=== PATIENT | male | born 2000 | race Caucasian/White ===

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

== ENCOUNTER 2021-06-08 14:53 | Emergency (ER) | payer BC, MEDICAID, SELFPAY ==
--- NOTE | ~2021-06-08 | XR_ITS ---
EXAMINATION: XR chest 2V EXAM DATE: 06/08/2021 15:26 INDICATION: Cough, congestion few days. hx bronchitis. TECHNIQUE: Frontal and lateral projections of the chest obtained and reviewed. There is no prior blanche dy for comparison. FINDINGS: The lungs are clear. There are no pleural effusions. The cardiomediastinal silhouette is within normal limits. There is no pneumothorax suspected. The bones and soft tissues are unremarkab le. IMPRESSION: No acute cardiopulmonary findings. Reviewed, dictated and finalized at location B.
[2021-06-08 15:05] VITALS: BP 130/71; PULSE 91; RESP 18; TEMP 37; O2SAT 98
--- NOTE | 2021-06-08 15:26 | ED.URI ---
HPI - URI/Sore Throat General Chief Complaint: Upper Respiratory Infection Stated Complaint: Congetion,Cough Time Seen by Provider: 06/08/21 15:27 Source: patient Mode of arrival: ambulatory Limitations: no limitations History of Present Illness HPI Narrative: Chepe Chun is a 20 yo male with no PMH who comes to [facility] with complaints of cough and chest discomfort from the coughing and sinus pain this been going on for last 2 to 3 days. He feels fatigue. He states he gets this every year with the change of seasons although is not diagnosed with asthma or seasonal allergies and does not take any medication Related Data Allergies Allergy/AdvReac Type Severity Reaction Status Date / Time No Known Allergies Allergy Unverified 12/04/18 06:09 Review of Systems Review of Systems: CONSTITUTIONAL: Denies fever, chills, sweats. EYES: Denies visual changes, redness, discharge. ENT: Denies rhinorrhea, has congestion, sore throat, otalgia. CARDIOVASCULAR: Has chest wall pain, palpitations, edema. RESPIRATORY: Denies dyspnea, wheezing, has cough GASTROINTESTINAL: Denies abdominal pain, nausea, vomiting, diarrhea. GENITOURINARY: Denies dysuria, hematuria, abnormal discharge SKIN: Denies rash or itching. NEUROLOGIC: Denies numbness, or focal weakness. PSYCHIATRIC: Denies anxiety or depression. PMFSH Past Medical History Medical History Healthy adult male Surgical History Surgical History History of orthopedic surgery Right ankle Family History Family History Other Unknown family medical history Social History Social History (Updated 06/08/21 @ 15:33 by Jasmin Day CNP) Smoking status: Current every day smoker Tobacco type: e-cigarettes/vaping Alcohol intake: never Comments At time of signature, I agree with nursing past medical, surgical, social and family history. There is no relevant family history pertinent to the presenting complaint. Exam Narrative: GENERAL: This is a well-nourished, well-developed patient, in mild distress. HEAD: normocephalic, atraumatic. EYES: Sclera clear/white. Vision is grossly intact. EARS: External ears normal, auditory canals clear, redness on right, and without drainage, TMs normal without perforation. Hearing grossly intact. NOSE: External nose normal without nasal discharge, nares with redness, no rhinorrhea. THROAT: Mucous membranes moist, posterior pharynx erythema with no exudate NECK: Neck supple, non-tender CARDIOVASCULAR: Regular rate and rhythm without murmurs, gallops, or rubs. RESPIRATORY: Clear to auscultation. Breath sounds equal bilaterally. No wheezes, rales, or rhonchi. GASTROINTESTINAL: Abdomen soft, SKIN: warm, intact with no suspicious lesions or rash, good texture and turgor. NEURO: awake, alert, and oriented to person, place and time. There were no obvious focal neurologic abnormalities. Steady gait EXTREMITIES: Normal range of motion. BACK: Nontender without deformity Course Course Emergency Course: Patient comes to [facility] with complaints of chest wall pain cough and congestion x2 to 3 days Chest x-ray done-no acute cardiopulmonary findings lungs are clear with no pleural effusions the cardiomediastinal silhouette is within normal limits Started on prednisone, Zyrtec, albuterol inhaler Vital Signs Vital signs: Vital Signs Temperature 98.6 F 06/08/21 15:05 Pulse Rate 91 06/08/21 15:05 Respiratory Rate 18 06/08/21 15:05 Blood Pressure 130/71 06/08/21 15:05 Pulse Oximetry 98 06/08/21 15:05 Temperature 98.6 F 06/08/21 15:05 Pulse Rate 91 06/08/21 15:05 Respiratory Rate 18 06/08/21 15:05 Blood Pressure 130/71 06/08/21 15:05 Pulse Oximetry 98 06/08/21 15:05 MDM - URI/Sore Throat Differential Diagnosis Differential diagnosis: Lik
== END 2021-06-08 15:44 | disposition home or self-care (01) ==
PROVIDERS: Emergency Provider Nurse Practitioner
DX: J40 Bronchitis, not specified as acute or chronic (principal); Z20.822 Contact with and (suspected) exposure to COVID-19; F17.200 Nicotine dependence, unspecified, uncomplicated
CPT/HCPCS: 71046; 87426; 99213; C9803; G0463

== ENCOUNTER 2021-10-28 00:26 | Emergency (ER) | payer BC, MEDICAID, SELFPAY ==
[2021-10-28 00:31] VITALS: BP 146/103; PULSE 96; RESP 18; TEMP 36.3; O2SAT 100
--- NOTE | 2021-10-28 00:49 | PC.NURSE ---
Pt sister tells assessment director, he told me tonight he was going to kill himself if he didn't come to the hospital.
--- NOTE | 2021-10-28 01:07 | ED.PSYCH ---
HPI - Psych General Chief Complaint: Psychiatric Symptoms Stated Complaint: Anxiety attack, suicidal ideations Time Seen by Provider: 10/28/21 00:27 History of Present Illness HPI Narrative: Patient is a 21-year-old male who presents ER with concerns for psychiatric issues. Patient reports he has been struggling with depression anxiety over the last couple years. Reports he has had recent increase in stress due to a break-up. Reports she has been having thoughts of ending his life but has no plan. He notes his thoughts were wrong with his not intact on any unknown. Reports he has been having panic attacks that usually last 1 hour maximum, tonight he had one that lasted 2 hours. Her friend helped calm him down. They also encouraged him to come to the hospital to be evaluated further. Patient used to cut when he was a teenager but has not done that for 7 years. Reports he has not seen a counselor or psychologist for 2 years. Sister reports patient has been drinking alcohol in his room alone and stated he is feeling increased depression. He saw her home and so she brought him here. Related Data Allergies Allergy/AdvReac Type Severity Reaction Status Date / Time No Known Allergies Allergy Unverified 10/28/21 00:34 Review of Systems Review of Systems: All systems reviewed & are unremarkable except as noted in HPI and below Constitutional: Constitutional: Denies chills and Denies fever(s) Respiratory: Respiratory: Denies cough and Denies dyspnea Gastrointestinal: Gastrointestinal: Denies abdominal pain, Denies nausea and Denies vomiting Psychiatric: Psychiatric: Reports anxiety, Reports depression, Denies homicidal ideation and Reports suicidal ideation PMFSH Past Medical History Medical History (Updated 10/28/21 @ 04:02 by Humberto Trinidad MD) Anxiety and depression Healthy adult male Surgical History Surgical History History of orthopedic surgery Right ankle Family History Family History Other Unknown family medical history Social History Social History (Updated 06/08/21 @ 15:33 by Jasmin Day CNP) Smoking status: Current every day smoker Tobacco type: e-cigarettes/vaping Alcohol intake: never Substance use type: does not use Exam Narrative: GENERAL: Well-appearing, well-nourished, and in no acute distress. HEAD: Normocephalic, atraumatic. EYES: PERRL and EOMI. CHEST: Clear to auscultation. No respiratory distress. HEART: Regular rate and rhythm. Normal peripheral pulses. ABDOMEN: Soft, nontender, nondistended. EXTREMITIES: Normal range of motion. No edema. SKIN: Warm, dry, no rash. NEURO: Alert and oriented x3. PSYCH: Mildly anxious, reports depression, no auditory or visual hallucinations. Course Course Emergency Course: Patient resting comfortably. He is spoken with crisis. He has developed a safety plan with crisis. [facility] will contact him on 10/30 for follow-up. They request that we give him a work note for 2 days as it is a significant source of his anxiety. Vital Signs Vital signs: Vital Signs Temperature 97.3 F L 10/28/21 00:31 Pulse Rate 96 10/28/21 00:31 Respiratory Rate 18 10/28/21 00:31 Blood Pressure 146/103 H 10/28/21 00:31 Pulse Oximetry 100 10/28/21 00:31 Temperature 97.3 F L 10/28/21 00:31 Pulse Rate 96 10/28/21 00:31 Respiratory Rate 18 10/28/21 00:31 Blood Pressure 146/103 H 10/28/21 00:31 Pulse Oximetry 100 10/28/21 00:31 MDM - Psych Lab Data Result diagrams: 10/28/21 00:49 10/28/21 00:49 Labs: Lab Results 10/28/21 10/28/21 10/28/21 Range/Units 00:49 00:49 00:49 WBC 11.0 H (4.5-10.0) K/mm3 RBC 5.63 (4.6-6.20) M/mm3 Hgb 17.4 (14.0-18.0) g/dL Hct 50.1 (42.0-52.0) % MCV 89.0 (80-100) fl MCH 30.9 (26-34) pg MCHC 34.7 (32-36) g/dl
--- NOTE | 2021-10-28 01:16 | ECG_ITS ---
Measurements Intervals [place] Rate: 98 P: 38 DE: 151 QRS: 2 QRSD: 81 T: 32 QT: 321 QTc: 412 Interpretive Statements SINUS RHYTHM WITH SINUS ARRHYTHMIA INCOMPLETE RIGHT BUNDLE BRANCH BLOCK BASELINE ARTIFACT- II, III, AVR, AVL, AVF, V6 BORDERLINE ECG Electronically Signed On 10-28-2021 6:38:47 [employer] by Domenico Deal D.O.
[2021-10-28 01:33] LABS: Basophils Percent Auto 0.3 % (0.2-1.2); Eosinophils Absolute Auto 0.4 K/mm3 (0-0.3); Eosinophils Percent Auto 3.3 % (0-4.4); Hematocrit 50.1 % (42.0-52.0); Hemoglobin 17.4 g/dL (14.0-18.0); Immature Granulocyte Absolute 0.03 K/mm3 (0.00-0.031); Immature Granulocyte Percent A 0.3 % (0-0.5); Immature Platelet Fraction Pct 5.1 % (0.9-11.2); Lymphocytes Absolute Auto 2.96 K/mm3 (0.9-3.2); Mean Corpuscular HGB Conc 34.7 g/dl (32-36); Mean Corpuscular Hemoglobin 30.9 pg (26-34); Monocytes Absolute Auto 0.6 K/mm3 (0.1-0.6); Monocytes Percent Auto 5.4 % (2.6-8.5); Neutrophils Percent Auto 63.7 % (45.5-73.1); Platelet Count Result 119 k/mm3 (150-375); Red Blood Count 5.63 M/mm3 (4.6-6.20); Red Cell Distribution Width 12.4 % (11.5-14.5)
[2021-10-28 01:42] LABS: Alanine Aminotransferase 21 U/L (4-50); Albumin Level 4.8 g/dL (3.5-5.1); Alkaline Phosphatase 67 U/L (38-126); Anion Gap 12 mmol/L (8-16); Aspartate Amino Transferase 26 U/L (17-59); Bilirubin,Total 0.8 mg/dL (0.2-1.3); Blood Urea Nitrogen 15 mg/dL (9-20); Calcium 9.6 mg/dL (8.4-10.2); Carbon Dioxide 28 mmol/L (22-30); Chloride 100 mmol/L (98-107); Estimated Glomerular Filt Rate > 60; Glucose 99 mg/dL (65-110); Potassium 3.4 mmol/L (3.4-5.0); Sodium 140 mmol/L (137-145)
[2021-10-28 01:43] LABS: Ethanol < 10 mg/dL (<10)
[2021-10-28 01:53] LABS: Amphetamine Screen Urine Negative (Negative); Barbiturate Screen Urine Negative (Negative); Benzodiazepines Screen Urine Negative (Negative); Cannabinoid Screen Urine Negative (Negative); Cocaine Screen Urine Negative (Negative); Methadone Screen Urine Negative (Negative); Opiate Screen Urine Negative (Negative); Phencyclidine Screen Urine Negative (Negative)
[2021-10-28 02:18] LABS: Add Urine Microscopic? YES; Appearance Urine Clear (Clear); Bilirubin Urine Negative (Negative); Blood Urine Negative (Negative); Color Urine Yellow (Yellow); Glucose Urine UA Negative (Negative); Ketones Urine Negative (Negative); Leukocyte Esterase Ur Negative LEU/UL (Negative); Mucus Urine Rare /lpf; Nitrate Urine Negative (Negative); Protein Urine Negative (Negative); RBC Urine 0-2 /hpf (0-2); Specific Grav Ur 1.027 (1.001-1.035); WBC Urine 0-3 /hpf
--- NOTE | 2021-10-28 02:21 | PC.NURSE ---
Pt has been medically cleared by EDP Dr. Trinidad at this time, will contact [facility].
--- NOTE | 2021-10-28 02:47 | PC.NURSE ---
Informed by crisis that [facility] needs to be contacted for this pt. Attempting to contact [facility] at this time. I left a call back number with them to return my call.
--- NOTE | 2021-10-28 02:59 | PC.NURSE ---
[facility] contacted at this time and will be out to evaluate.
--- NOTE | 2021-10-28 03:58 | PC.NURSE ---
Spoke with [facility] worker December who is ok with pt leaving with a safety plan at this time.
[2021-10-28 04:19] LABS: SARS-CoV-2 RNA PCR Negative
[2021-10-28 04:23] VITALS: BP 121/87; PULSE 74; RESP 16; O2SAT 97
== END 2021-10-28 04:24 | disposition home or self-care (01) ==
PROVIDERS: Emergency Provider Emergency Medicine
DX: F32.A Depression, unspecified (principal); F41.9 Anxiety disorder, unspecified; Z20.822 Contact with and (suspected) exposure to COVID-19; F17.290 Nicotine dependence, other tobacco product, uncomplicated; I45.10 Unspecified right bundle-branch block
CPT/HCPCS: 36415; 80053; 80307; 81001; 84443; 85025; 85055; 93005; 99284; C9803; U0003; U0005

== ENCOUNTER 2023-04-26 09:29 | Emergency (ER) | payer BC, SELFPAY ==
--- NOTE | ~2023-04-26 | XR_ITS ---
EXAMINATION: XR tibia fibula LT 2V DATE: 04/26/2023 10:09 INDICATION: Lateral left lower leg pain TECHNIQUE: Anteroposterior and lateral views of the left tibia and fibula were obtained. COMPARISON: 09/21/2018 FINDINGS: Interfragmentary screw and lateral plate and screw fixation spanning the site of the previously seen distal left fibular fracture which is healed in essentially anatomic alignment. No instrumentation fa ilure or lucency surrounding the screws to suggest loosening or infection. No new fractures identifie d. Visualized joint spaces appear normal. No knee or ankle joint effusion. There is focal soft tissue swelling at the lateral aspect of the distal lower leg centered 10 cm cephalad to the level of the t ibiotalar joint line. IMPRESSION: 1. Nonspecific focal soft tissue swelling at the lateral distal left calf near the proximal tip of a lateral plate and screw fixation along the distal fibula. No acute osseous abnormality. Reviewed, dictated and finalized at location B.
[2023-04-26 09:40] VITALS: BP 131/68; PULSE 70; RESP 18; TEMP 36.6; O2SAT 99
--- NOTE | 2023-04-26 09:43 | ED.LOWEXIN ---
HPI - Extremity Injury (Lower) General Chief Complaint: Extremity Problem,Nontraumatic Stated Complaint: Ankle Pain Time Seen by Provider: 04/26/23 09:43 Source: patient, RN notes reviewed and old records reviewed Mode of arrival: ambulatory Limitations: no limitations History of Present Illness HPI Narrative: 22-year-old male presents to the [facility] with complaints of left leg and ankle pain. States for the last 2 days it has been ?buckling? Reports he has had surgery to the same ankle and lower leg years ago. States he gets all of his medical care through urgent cares and ERs. Does not have a primary care provider. No swelling, erythema, ecchymosis noted Related Data Home Medications Medication Instructions Recorded Confirmed No Home Medications 04/26/23 04/26/23 Allergies Allergy/AdvReac Type Severity Reaction Status Date / Time No Known Allergies Allergy Verified 04/26/23 09:31 Review of Systems Review of Systems: All systems reviewed & are unremarkable except as noted in HPI and below Constitutional: Constitutional: Reports no additional constitutional complaints Eyes: Eyes: Reports no additional eye complaints ENT: Reports system reviewed and no additional complaints, except as documented Cardiovascular: Cardiovascular: Reports no additional cardiovascular complaints, Denies chest pain and Denies dyspnea Respiratory: Respiratory: Reports no additional respiratory complaints, Denies chest congestion, Denies cough and Denies dyspnea Gastrointestinal: Gastrointestinal: Reports no additional gastrointestinal complaints, Denies abdominal pain, Denies nausea and Denies vomiting Musculoskeletal: Musculoskeletal: Reports as per HPI Integumentary/Breasts: Skin/Breast: Reports system reviewed and no additional complaints, except as docu Neurologic: Reports system reviewed and no additional complaints, except as documented Psychiatric: Psychiatric: Reports no additional psychiatric complaints Allergic/Immunologic: Allergic/Immunologic: Reports no additional allergic/immunologic complaints [facility] Past Medical History Medical History Anxiety and depression Healthy adult male Surgical History Surgical History History of orthopedic surgery Right ankle Family History Family History Other Unknown family medical history Social History Social History Smoking status: Current every day smoker Tobacco type: e-cigarettes/vaping Alcohol intake: never Substance use type: does not use Comments At the time of my signature, I reviewed and agree with the nursing past medical, surgical, social, and family history. There is no relevant family history pertinent to the patient complaint. Exam Const: General: cooperative, healthy appearing, comfortable, no acute distress, well developed, alert and well nourished Nutritional Appearance: well nourished Orientation/consciousness: patient oriented x3 Limitations: no limitations HENMT: Head: normal to inspection Ears: hearing grossly normal bilaterally and external ears normal Face/Nose/Sinus: Normal external nose present, Normal nares present, Normal nasal mucous membranes and turbinates present and normal facial exam Face and sinus: normal facial exam Mouth: Yes lip normal Eyes: General: appearance normal, both eyes and all related structures Alignment and Position: alignment normal Periorbital: periorbital findings normal Pupils: Equal, round and reactive pupils present EOM: EOMs intact bilaterally Neck: Neck: normal visual inspection, full ROM, no lymphadenopathy and no meningeal signs Chest: Chest palpation & inspection: normal inspection of the chest Resp: Effort & Inspection: normal respiratory effort and able to speak in comp
== END 2023-04-26 10:28 | disposition home or self-care (01) ==
PROVIDERS: Emergency Provider Nurse Practitioner
DX: M79.662 Pain in left lower leg (principal); F17.290 Nicotine dependence, other tobacco product, uncomplicated
CPT/HCPCS: 73590; 99213; G0463

== ENCOUNTER 2024-03-09 18:41 | Emergency (ER) | payer BC, SELFPAY ==
[2024-03-09 18:50] VITALS: BP 120/87; PULSE 86; RESP 18; TEMP 36.7; O2SAT 100
--- NOTE | 2024-03-09 19:08 | ED.GENADULT ---
HPI - General Adult General Chief complaint: Abdominal Pain Stated complaint: BELLY BUTTON PAIN/SWELLING Time Seen by Provider: 03/09/24 19:08 Source: patient Mode of arrival: ambulatory Limitations: no limitations History of Present Illness HPI narrative: Patient presents today with complaints of pain and swelling to the umbilicus. He denies any injury or trauma. He reports that he is having normal bowel movements and is able to pass gas. He denies any fever, chills, sweats. He has not been taking anything for his symptoms. Symptoms have been present for approximately 1 week, worsening Related Data Allergies Allergy/AdvReac Type Severity Reaction Status Date / Time No Known Allergies Allergy Verified 03/09/24 18:55 Review of Systems Review of Systems: All systems reviewed & are unremarkable except as noted in HPI and below Constitutional: Constitutional: Reports no additional constitutional complaints ENT: Reports system reviewed and no additional complaints, except as documented Cardiovascular: Cardiovascular: Reports no additional cardiovascular complaints Respiratory: Respiratory: Reports no additional respiratory complaints Gastrointestinal: Gastrointestinal: Reports no additional gastrointestinal complaints Integumentary/Breasts: Skin/Breast: Reports change in pigmentation (Redness to periumbilical area), Reports skin pain and Reports skin swelling (Periumbilical) Comments: Periumbilical area tender to touch PMFSH Past Medical History Medical History Anxiety and depression Healthy adult male Surgical History Surgical History History of orthopedic surgery Right ankle Family History Family History Other Unknown family medical history Social History Social History Smoking status: Current every day smoker Tobacco type: e-cigarettes/vaping Alcohol intake: never Substance use type: does not use Comments At the time of my signature, I reviewed and agree with the nursing past medical, surgical, social, and family history. There is no relevant family history pertinent to the patient complaint. Exam Const: General: cooperative, no acute distress, alert and awake Orientation/consciousness: oriented to person, oriented to place and oriented to time HENMT: Head: normal to inspection Resp: Effort & Inspection: normal respiratory effort and able to speak in complete sentences Auscultation: clear to auscultation bilaterally, no crackles, no rales, no rhonchi and no wheezes Cardio: Palpation: normal PMI Rate: regular rate Rhythm: regular rhythm Heart sounds: S1 normal heart sound present and S2 normal heart sound present Skin: Full body images: 1. mild redness and swelling to the skin, no induration or drainage. Mild calor Neuro: General: oriented to person, oriented to place and oriented to time Cranial nerves: Yes CN's II-XII intact bilaterally Psych: Appearance: grossly normal Thought process: Normal thought process present Insight: Good insight present (Psych) Judgement: Good judgement present (Psych) Course Course Level of Care: Express Care Visit Vital Signs Vital signs: Vital Signs Temperature 98.1 F 03/09/24 18:50 Pulse Rate 86 03/09/24 18:50 Respiratory Rate 18 03/09/24 18:50 Blood Pressure 120/87 03/09/24 18:50 Pulse Oximetry 100 03/09/24 18:50 Oxygen Delivery Room Air 03/09/24 18:50 Temperature 98.1 F 03/09/24 18:50 Pulse Rate 86 03/09/24 18:50 Respiratory Rate 18 03/09/24 18:50 Blood Pressure 120/87 03/09/24 18:50 Pulse Oximetry 100 03/09/24 18:50 Oxygen Delivery Room Air 03/09/24 18:50 Reviewed Medical Decision Making MDM Narrative Medical decision making narrative: Exam is consiste
== END 2024-03-09 19:30 | disposition home or self-care (01) ==
PROVIDERS: Emergency Provider Nurse Practitioner Family
DX: L03.316 Cellulitis of umbilicus (principal); F17.290 Nicotine dependence, other tobacco product, uncomplicated
CPT/HCPCS: 99213; G0463

== ENCOUNTER 2024-03-13 07:26 | Emergency (ER) | payer BC, SELFPAY ==
--- NOTE | ~2024-03-13 | CT_ITS ---
EXAMINATION: CT abdomen pelvis w con DATE: 03/13/2024 10:35 INDICATION: Abdominal wall cellulitis with umbilical abscess. TECHNIQUE: Computed tomography (CT) of the abdomen and pelvis was performed with 100 mL Omnipaque 350 intravenous contrast. Automated exposure control and iterative reconstruction technique were employe d. The dose-length product was 594.44 mGy-cm. COMPARISON: None. FINDINGS: The visualized portions of the lung bases are clear without pneumonia or pleural effusion. The heart size is normal. No pericardial effusion. The liver, gallbladder, spleen, pancreas, adrenal glands, and kidneys are normal. There are no dilated loops of bowel. The appendix is normal. There ar e no pathologically enlarged lymph nodes. There is no free intraperitoneal fluid. There is fat strand ing in anterior abdominal wall centered at the umbilicus. At the umbilicus, there is a mass with cent ral low attenuation measuring 3.0 x 2.0 x 2.7 cm, consistent with abscess. There is mild lumbar spond ylosis. IMPRESSION: 1. Anterior abdominal wall cellulitis with 3.0 x 2.0 x 2.7 cm umbilical abscess. Reviewed, dictated and finalized at location A. IMPRESSION: 1. Anterior abdominal wall cellulitis with 3.0 x 2.0 x 2.7 cm umbilical abscess .
[2024-03-13 07:34] VITALS: BP 137/75; PULSE 107; RESP 18; TEMP 37.3; O2SAT 99
--- NOTE | 2024-03-13 09:28 | ED.SKABFB ---
HPI - Skin/Abscess/Foreign Bdy General Chief complaint: Skin/Abscess/Foreign Body Stated complaint: cellulitis, taking abx since 03/09 Time Seen by Provider: 03/13/24 09:18 History of Present Illness HPI narrative: Year old male with no past medical history presents to the emergency department for abdominal cellulitis x6 days. Patient states he started noting redness to his abdomen. He was seen at urgent care 4 days ago and was prescribed Bactrim which she has been taking without improvement. States the swelling, redness and pain has persisted and worsened since being on antibiotics. He denies prior abdominal surgeries, fever, nausea or vomiting per last bowel movement was last night and normal. Denies diarrhea, history of IBD. Related Data Allergies Allergy/AdvReac Type Severity Reaction Status Date / Time No Known Allergies Allergy Verified 03/13/24 07:39 Review of Systems Review of Systems: CONSTITUTIONAL: Denies fever, chills, or sweats. EYES: Denies visual changes, redness, or discharge. ENT: Denies rhinorrhea, congestion, sore throat, or otalgia. CARDIOVASCULAR: Denies chest pain, palpitations, or edema. RESPIRATORY: Denies cough or dyspnea. GASTROINTESTINAL: Denies abdominal pain, nausea, vomiting, or diarrhea. GENITOURINARY: Denies dysuria or hematuria. SKIN: See HPI MUSCULOSKELETAL: Denies back pain, joint pain, or myalgia. NEUROLOGIC: Denies headache, numbness, or weakness. PSYCHIATRIC: Denies anxiety or depression. PMFSH Past Medical History Medical History Anxiety and depression Healthy adult male Surgical History Surgical History History of orthopedic surgery Right ankle Family History Family History Other Unknown family medical history Social History Social History Smoking status: Current every day smoker Tobacco type: e-cigarettes/vaping Alcohol intake: never Substance use type: does not use Exam Narrative: GENERAL: Well-appearing, well-nourished, and in no acute distress. HEAD: Normocephalic, atraumatic. EYES: PERRLA and EOMI. ENT: Nares clear, no rhinorrhea or epistaxis. Mucous membranes moist. NECK: Supple. CHEST: Clear to auscultation. No respiratory distress. HEART: Regular rate and rhythm. No murmur heard. Normal peripheral pulses. ABDOMEN: normoactive bowel sounds. Abdomen soft with tenderness around the periumbilical region and suprapubic region. No rebound Or rigidity. Voluntary guarding. See skin exam. EXTREMITIES: Normal range of motion. No edema. SKIN: Tender, warm and erythematous abscess to the umbilicus with surrounding blanching warmth and erythema throughout the abdominal wall. No spontaneous drainage, no crepitus or vesicles, no areas of necrosis. NEURO: No focal deficits. Alert and oriented x3 Course Vital Signs Vital signs: Vital Signs Temperature 99.1 F 03/13/24 07:34 Pulse Rate 107 H 03/13/24 07:34 Respiratory Rate 18 03/13/24 07:34 Blood Pressure 137/75 03/13/24 07:34 Pulse Oximetry 99 03/13/24 07:34 Oxygen Delivery Room Air 03/13/24 07:34 Temperature 99.1 F 03/13/24 07:34 Pulse Rate 100 03/13/24 11:12 Respiratory Rate 20 03/13/24 11:12 Blood Pressure 121/71 03/13/24 11:12 Pulse Oximetry 98 03/13/24 11:12 Oxygen Delivery Room Air 03/13/24 07:34 Procedures Abscess I/D abdomen: Date of Incision: 03/13/24 Time of Incision: 12:32 Local Anesthetic: lidocaine 1% and with epi Amount of anesthesia used (mL): 3 Technique: incised with #11 blade Amount of fluid expressed (mL): 5 Packing used?: iodoform I&D Results: Pus and Blood MDM - Skin/Abscess/Foreign Bdy MDM Narrative Medical decision making narrative:
[2024-03-13] MEDS: SODIUM CHLORIDE 0.9% IV 1,000 ML 999 ML IV CONT (09:41)
[2024-03-13] MEDS: KETOROLAC 15 MG/ML VIAL (*BKC) IV PUSH (09:41)
[2024-03-13 09:42] VITALS: BP 104/83; PULSE 105; RESP 15; O2SAT 98
[2024-03-13 09:52] LABS: Basophils Percent Auto 0.3 % (0.2-1.2); Eosinophils Absolute Auto 0.1 K/mm3 (0-0.3); Eosinophils Percent Auto 0.8 % (0-4.4); Hematocrit 51.8 % (42.0-52.0); Hemoglobin 17.7 g/dL (14.0-18.0); Immature Granulocyte Absolute 0.04 K/mm3 (0.00-0.031); Immature Granulocyte Percent A 0.3 % (0-0.5); Lymphocytes Absolute Auto 1.68 K/mm3 (0.9-3.2); Lymphocytes Percent Auto 10.6 % (18.3-44.2); Mean Corpuscular HGB Conc 34.2 g/dl (32-36); Mean Corpuscular Hemoglobin 30.9 pg (26-34); Mean Corpuscular Volume 90.6 fl (80-100); Monocytes Percent Auto 6.5 % (2.6-8.5); Neutrophils Absolute Auto 12.9 K/mm3 (1.3-6.7); Neutrophils Percent Auto 81.5 % (45.5-73.1); Platelet Count Result 126 k/mm3 (150-375); Red Blood Count 5.72 M/mm3 (4.6-6.20); Red Cell Distribution Width 13.1 % (11.5-14.5); White Blood Count 15.8 K/mm3 (4.5-10.0)
[2024-03-13 10:02] LABS: Lactic Acid Reflex 0.7 mmol/L (0.7-2.0)
[2024-03-13 10:04] LABS: Alanine Aminotransferase 42 U/L (6-50); Alkaline Phosphatase 69 U/L (38-126); Anion Gap 8 mmol/L (4-12); Aspartate Amino Transferase 31 U/L (17-59); Bilirubin,Total 1.2 mg/dL (0.2-1.3); Blood Urea Nitrogen 17 mg/dL (9-20); Calcium 9.6 mg/dL (8.4-10.2); Carbon Dioxide 26 mmol/L (22-30); Chloride 101 mmol/L (98-107); Estimated CRCL calculation 111 ml/min; Estimated Glomerular Filt Rate > 60; Glucose 92 mg/dL (65-110); Potassium 4.2 mmol/L (3.4-5.0); Sodium 135 mmol/L (137-145)
[2024-03-13 10:31] LABS: Appearance Urine Clear (Clear); Bilirubin Urine Negative (Negative); Blood Urine Negative (Negative); Color Urine Yellow (Yellow); Glucose Urine UA Negative (Negative); Ketones Urine Trace mg/dL (Negative); Leukocyte Esterase Ur Negative LEU/UL (Negative); Nitrate Urine Negative (Negative); Protein Urine Negative (Negative); Specific Grav Ur 1.024 (1.001-1.035)
[2024-03-13 10:49] LABS: Erythrocyte Sedimentation Rate 1 mm/hr (0-20)
[2024-03-13 10:54] LABS: Add Urine Microscopic? NO
[2024-03-13 11:12] VITALS: BP 121/71; PULSE 100; RESP 20; O2SAT 98
[2024-03-13] MEDS: CLINDAMYCIN 900 MG/D5W 50 ML 900 MG/50 ML PIGGYBACK 50 MG IVPB (12:55)
[2024-03-13 12:59] VITALS: BP 111/48; PULSE 80; RESP 15; O2SAT 99
[2024-03-13 14:15] VITALS: BP 122/78; PULSE 82; RESP 19; O2SAT 98
== END 2024-03-13 14:18 | disposition home or self-care (01) ==
PROVIDERS: Emergency Provider Physician Assistant
DX: L02.211 Cutaneous abscess of abdominal wall (principal); L03.316 Cellulitis of umbilicus; F17.290 Nicotine dependence, other tobacco product, uncomplicated
CPT/HCPCS: 10061; 36415; 74177; 80053; 81003; 83605; 85025; 85652; 86140; 87070; 87205; 96361; 96365; 96375; 99284; J1885; J7030; Q9967

== ENCOUNTER 2024-07-15 08:07 | Emergency (ER) | payer BC, SELFPAY ==
[2024-07-15 08:23] VITALS: BP 139/68; PULSE 77; RESP 18; TEMP 36.6; O2SAT 100
--- NOTE | 2024-07-15 08:26 | ED.GENADULT ---
HPI - General Adult General Chief complaint: Upper Respiratory Infection Stated complaint: Sinus Infection/Nausea Time Seen by Provider: 07/15/24 08:30 Source: patient, RN notes reviewed and old records reviewed Mode of arrival: ambulatory Limitations: no limitations History of Present Illness HPI narrative: 23 year old male presents to express care with complaints of nausea and vomiting, sinus congestion and drainage with sinus pressure and cough since Saturday. Patient reports that he has noted also headache for which he has been taking Ibuprofen and also DayQuil for his symptoms. Patient reports he usually gets this respiratory junk every year in the fall. Patient reports that he vomitied this morning but was able to eat breakfast afterwards and has kept food down so far. MD complaint: sinus congestion and drainage , cough, headache Onset (ago): day(s) (4 days) Severity: moderate Treatments prior to arrival: other (DayQuil and also Ibuprofen) Related Data Allergies Allergy/AdvReac Type Severity Reaction Status Date / Time No Known Allergies Allergy Verified 07/15/24 08:34 Review of Systems Review of Systems: CONSTITUTIONAL: Reports malaise, no chills, sweats, or fever. EYES: Denies visual changes, redness, or discharge. ENT: Reports rhinorrhea, congestion, sinus pain,no otalgia and no acute sore throat. CARDIOVASCULAR: Denies chest pain, palpitations, or edema. RESPIRATORY: Reports cough.? Denies dyspnea. GASTROINTESTINAL: Denies abdominal pain, nausea, vomiting, diarrhea SKIN: Denies rash or itching. MUSCULOSKELETAL: Denies myalgia. NEUROLOGIC: Reports headache. All systems reviewed & are unremarkable except as noted in HPI and below PMFSH Past Medical History Medical History (Updated 07/15/24 @ 08:50 by Michelle Chaudhary NP) Anxiety and depression Bronchitis Healthy adult male Surgical History Surgical History (Updated 03/26/24 @ 14:52 by Ashlee Cintron CMA) History of orthopedic surgery Right ankle Family History Family History Other Unknown family medical history Social History Social History (Updated 03/26/24 @ 13:15 by GARRETT Watt) Smoking status: Current every day smoker Tobacco type: e-cigarettes/vaping Alcohol intake: never Substance use type: does not use Do You Feel Safe in your Home?: Yes Lack of Transportation: No Lack of Food: Never True Current Housing: I Have Housing Concerned About Future Housing: No Difficulty Paying Gas/Electric Bills: No Difficulty Paying for Meds: No Currently Unemployed: YES Education: High School Diploma/GED Difficulty w/ Childcare or Family Care: No Comments At time of signature, agree with nursing past medical, surgical, social and family history. There is no relevant family history pertinent to the presenting complaint Exam Narrative: GENERAL: Well-appearing, well-nourished, and in no acute distress. HEAD: Normocephalic EYES: PERRLA, conjunctivae clear ENT: Nares clear, turbinates edematous and erythematous, clear discharge, positive for sinus pressure and headache. Mucous membranes moist. TM pearly carvajal with dull light reflex bilaterally; no tragal tenderness. Oropharynx erythematous without lesions. Tonsils not enlarged and without exudate, no drooling, no hoarseness, no trismus, uvula midline.post nasal drainage NECK: Supple. No lymphadenopathy CHEST: Scattered wheezing on auscultation, breath sounds equal. positive wheezing, rhonchi, rales, or stridor. No respiratory distress, speaks in full sentences.cough, SAO2 100% on room air HEART: Regular rate and rhythm. No murmur heard. SKIN: Warm, dry, no rash. NEURO: Alert and oriented x3. PSYCH: Normal mood and affect Course Course Emergency Course: Patient is aware of diagnosis, understands and agrees to treatment plan.? Anticipatory guidance given.? Patient agrees to follow-up as directed and is aware of reasons to seek care at the emergency department. Portions of this record may have been created with voice recognition software Level of Care: Express Care Visit Vital Signs Vital signs: Reviewed Medical Decision Making Differential Diagnosis Differential Diagnosis: URI, bacterial sinusitis,viral infection, Bronchitis, acute cough, nausea and vomiting Medical Records Medical records reviewed: Yes I reviewed the external patient's medical records. Critical Care Time Critical Care Time Critical Care Time: No Discharge Plan Discharge Clinical Impression: Bronchitis Nausea & vomiting Qualifiers: Vomiting type: unspecified Qualified Code(s): R11.2 - Nausea with vomiting, unspecified Patient Disposition: Home, Self-Care Condition: Stable Instructions: Antibiotic Form, Acute Bronchitis (ED), Acute Nausea and Vomiting (ED) Additional Instructions: Increase fluids especially juices and water [id number] cough and cold medicine of your choice for your symptoms Medication for nausea and vomiting Continue your inhaler/nebulizer as directed Steroids as directed--take with food heat to the face 20-30 minutes 4-6 times a day for pain Salt water gargles, throat lozenges or throat sprays as desired Antibiotic as directed--finished the medication If your symptoms persist, change or worsen significantly before you can contact your personal physician then please, without delay, go to the emergency department for further evaluation. Follow-up with PCP in 7-10 days or sooner if needed Follow up with PCP soon in regards to your blood pressure which is elevated above threshold for referral. Blood pressure above 120/80 may indicate pre-hypertension. 139/68 Drink plenty of fluid and eat light diet avoid caffeine and any spicy or fried foods Prescriptions: New albuterol sulfate 90 mcg/actuation HFA aerosol inhaler 2 puff inhalation QID PRN (Reason: shortness of breath or wheezing) Qty: 6.7 0RF Rx Instructions: Use 4 times daily for the next 2 days then as needed prednisone 20 mg tablet 20 mg PO BID Qty: 10 0RF azithromycin 250 mg tablet See Rx Instructions .ROUTE .COMPLEX Qty: 6 0RF Rx Instructions: For 250 mg dose pack: take 500 mg today (day 1), then 250 mg for 4 days (days 2-5) ondansetron 4 mg tablet,disintegrating 4 mg PO Q6H PRN (Reason: nausea and vomiting) Qty: 14 0RF Follow-up/Referrals: PHYSICIAN,GUEST SERVICES AGENT [Primary Care Provider] - Stand Alone Forms: Work/School Release IP Time of Disposition: 08:54 Quality Kenan Coma Scale Eyes: Open Verbal: Oriented and Alert Motor: Follows Commands Kenan Coma Total Score: 15
== END 2024-07-15 09:00 | disposition home or self-care (01) ==
PROVIDERS: Emergency Provider Registered Nurse
DX: J40 Bronchitis, not specified as acute or chronic (principal); R11.2 Nausea with vomiting, unspecified; F17.290 Nicotine dependence, other tobacco product, uncomplicated
CPT/HCPCS: 99213; G0463

== ENCOUNTER 2024-11-15 08:56 | Emergency (ER) | payer BC, SELFPAY ==
[2024-11-15 09:01] VITALS: BP 113/66; PULSE 125; RESP 16; TEMP 37.8; O2SAT 98
--- NOTE | 2024-11-15 09:23 | ED.URI ---
HPI - URI/Sore Throat General Chief Complaint: Upper Respiratory Infection Stated Complaint: Sore Throat/Light Headed/Headache/Fever Time Seen by Provider: 11/15/24 09:32 Source: patient and RN notes reviewed Mode of arrival: ambulatory Limitations: no limitations History of Present Illness HPI Narrative: 24-year-old male presents with concern for sore throat, fever, nausea, headache, lightheadedness. He reports 1 episode of vomiting. He reports he has not taken any medication for his symptoms. MD elicited complaint: sore throat Related Data Allergies Allergy/AdvReac Type Severity Reaction Status Date / Time No Known Allergies Allergy Verified 11/15/24 09:21 Review of Systems Review of Systems: CONSTITUTIONAL: Reports malaise, fever. EYES: Denies visual changes, redness, or discharge. ENT: Denies rhinorrhea, congestion, sinus pain, otalgia. Reports sore throat. CARDIOVASCULAR: Denies chest pain, palpitations, or edema. RESPIRATORY: Denies cough. Denies dyspnea. GASTROINTESTINAL: Denies abdominal pain, diarrhea. Reports nausea and vomiting SKIN: Denies rash or itching. MUSCULOSKELETAL: Denies myalgia. NEUROLOGIC: Reports headache. All systems reviewed & are unremarkable except as noted in HPI and below PMFSH Past Medical History Medical History (Updated 11/15/24 @ 09:52 by Monika Garrett NP) Anxiety and depression Bronchitis Healthy adult male Surgical History Surgical History (Updated 03/26/24 @ 14:52 by Ashlee Cintron CMA) History of orthopedic surgery Right ankle Family History Family History Other Unknown family medical history Social History Social History (Updated 03/26/24 @ 13:15 by GARRETT Watt) Smoking status: Current every day smoker Tobacco type: e-cigarettes/vaping Alcohol intake: never Substance use type: does not use Do You Feel Safe in your Home?: Yes Lack of Transportation: No Lack of Food: Never True Current Housing: I Have Housing Concerned About Future Housing: No Difficulty Paying Gas/Electric Bills: No Difficulty Paying for Meds: No Currently Unemployed: YES Education: High School Diploma/GED Difficulty w/ Childcare or Family Care: No Comments At time of signature, agree with nursing past medical, surgical, social and family history. There is no relevant family history pertinent to the presenting complaint Exam Narrative: GENERAL: Nontoxic-appearing, well-nourished, and in no acute distress. HEAD: Normocephalic EYES: PERRLA, conjunctivae clear ENT: Nares clear. Mucous membranes moist. TM pearly carvajal with dull light reflex bilaterally; no tragal tenderness. Oropharynx erythematous without lesions. Tonsils not enlarged and without exudate, no drooling, no hoarseness, no trismus, uvula midline. NECK: Supple. No lymphadenopathy CHEST: Clear to auscultation, breath sounds equal. No wheezing, rhonchi, rales, or stridor. No respiratory distress, speaks in full sentences. HEART: Regular rate and rhythm. No murmur heard. SKIN: Warm, dry, no rash. NEURO: Alert and oriented x3. PSYCH: Normal mood and affect Course Course Emergency Course: Patient is aware of diagnosis, understands and agrees to treatment plan. Anticipatory guidance given. Patient agrees to follow-up as directed and is aware of reasons to seek care at the emergency department. Portions of this record may have been created with voice recognition software Level of Care: Express Care Visit Vital Signs Vital signs: Vital Signs Temperature 100.1 F H 11/15/24 09:01 Pulse Rate 125 H 11/15/24 09:01 Respiratory Rate 16 11/15/24 09:01 Blood Pressure 113/66 11/15/24 09:01 Pulse Oximetry 98 11/15/24 09:01 Oxygen Delivery Room Air 11/15/24 09:01 Temperature 100.1 F H 11/15/24 09:01 Pulse Rate 125 H 11/15/24 09:01 Respiratory Rate 16 11/15/24 09:01 Blood Pressure 113/66 11/15/24 09:01 Pulse Oximetry 98 11/15/24 09:01 Oxygen Delivery Room Air 11/15/24 09:01 Reviewed. MDM - URI/Sore Throat MDM Narrative Medical decision making narrative: Differential diagnosis considered: Lee virus, strep pharyngitis, allergic rhinitis, upper respiratory tract infection, sinusitis, rhinosinusitis, nasopharyngitis. viral pharyngitis, otitis media, otitis externa, pneumonia, bronchitis, viral cough syndrome, viral syndrome, and influenza. Exam findings show no acute concerns or changes; patient is non-toxic appearing and is in no distress. Patient is appropriate for outpatient treatment and follow-up. Lab Data Attestation: I reviewed the patient's lab results. Critical Care Time Critical Care Time Critical Care Time: No Discharge Plan Discharge Clinical Impression: Acute streptococcal pharyngitis Patient Disposition: Home, Self-Care Condition: Stable Instructions: Antibiotic Form, Strep Throat (ED) Additional Instructions: -Take the medication as prescribed. Throw away the toothbrush after 24hours of antibiotic. -Eat and drink things that are easy to swallow, like tea or soup, or popsicles to suck on. -Oral rinses such as: Salt water gargles and/or may use topical anesthetic (eg. Chloraseptic spray) or lozenges to relieve dryness or throat pain). -Take Tylenol and ibuprofen as needed for pain and fever as directed. -Frequent hand washing or hand phlebotomy director is one of the best ways to prevent spread of infection. -Follow up with primary care provider in 2-3 days if condition is not improving; or seek ER visit if you have trouble breathing, cannot drink enough fluids, have muffled voice, difficulty opening your mouth, or severe swelling. Patient Language: Vietnamese Prescriptions: New penicillin V potassium 500 mg tablet 500 mg PO Q12H 10 Days Qty: 20 0RF Follow-up/Referrals: PHYSICIAN,TELESALES CONSULTANT [Primary Care Provider] - Stand Alone Forms: Work/School Release IP Time of Disposition: 09:53
[2024-11-15 09:32] LABS: EDCOVIDSCREEN Negative (Negative); EDINFLUASCREEN Negative (Negative); EDINFLUBSCREEN Negative (Negative)
[2024-11-15 09:50] LABS: EDSTREPNEGPOS1 Positive (Negative)
== END 2024-11-15 09:55 | disposition home or self-care (01) ==
PROVIDERS: Emergency Provider Nurse Practitioner
DX: J02.0 Streptococcal pharyngitis (principal); Z20.822 Contact with and (suspected) exposure to COVID-19; F17.290 Nicotine dependence, other tobacco product, uncomplicated
CPT/HCPCS: 87426; 87804; 87880; 99213; G0463

== ENCOUNTER 2025-02-08 13:31 | Emergency (ER) | payer BC, SELFPAY ==
--- OUTSIDE RECORDS SUMMARY | 2025-02-08 13:33 | XMS_ITS | Clinical Summary ---
Author Organization [facility] Address [address] [place] [address] Care Team Providers Care Restaurant Manager Name Role Phone Unavailable Primary Care Provider Unavailabl e Source Comments [facility],non-owned Affiliates and Associated Physician Practices is amultiple site organization consisting of ambulatory clinics and hospital sitesin [place], [place], [place] and [place]. This disclosure is being madepursuant to the Care Everywhere program and may not contain all information available regarding this patient. Last updated 18.[facility] Allergies Active Allergy Reactions Criticality Noted Date Comments Milk-Related Compounds Nausea and/or Vomiting 0 03/10/2015 Medications * Be aware that medications may not be up to date on this document. Alwaysverify current medications with the patient. 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 Toe-walking 07/07/2015 Abnormal increased muscle tone 07/07/2015 Social History Tobacco Use Types Packs/Day Years Used Date Smoking Tobacco: Never Alcohol Use Standard Drinks/Week Comments Not Asked 0 (1 standard drink = 0.6 oz pur e alcohol) Sex and Gender Information Value Date Recorded Sex Assigned at Not on file Legal Sex Male 9:27 AM [employer] Gender Identity Not on file Sexual Orientation Not on file Last Filed Vital Signs Vital Sign Reading Time Taken Comments Blood Pressure 114/74 07/07/2015 11:26 AM CDT Pulse - - Temperature 36.9 C (98.4 F) 12/12/2015 1:30 PM CDT Respiratory Rate - - Oxygen Saturation - - Inhaled Oxygen Concentration - - Weight 63.3 kg (139 lb 8.8 oz) 12/12/2015 1:30 P M CDT Height 169.5 cm (5' 6.73) 12/12/2015 1:30 PM CD T Body Mass Index 22.03 12/12/2015 1:30 PM CDT Plan of Treatment Health Maintenance Due Date Last Done Comments HIV SCREENING 2016 HPV VACCINE (1 - Male 3-dose series) 2016 MENINGOCOCCAL (Group B) VACC INE SHARED DECISION-MAKING (1 of 2 - Standard) 2017 HEPATITIS C SCREENING 08/30/2019 DTAP/TDAP/TD VACCINES (1 - Tdap) 2020 HEPATITIS B VACCINE (1 of 3 - 19+ 3-dose series) 2020 COVID-19 VACCINE (1 - 2023-2 5 season) 2024 DEPRESSION SCREENING 09/16/2024 INFLUENZA VACCINE (Season Ended) 2025 ZOSTER VACCINE (1 of 2) 2051 HIB VACCINE Aged Out No longer eligi ble based on patient's age to complete this topic MENINGOCOCCAL GROUPS A/C/Y/W VACCINE Aged Out No longer eligible b ased on patient's age to complete this topic PNEUMOCOCCAL VACCINE Aged Out No long er eligible based on patient's age to complete this topic Insurance [facility]
[2025-02-08 13:36] VITALS: BP 119/75; PULSE 101; RESP 16; TEMP 37.1; O2SAT 99
--- NOTE | 2025-02-08 14:09 | ED.NAVMDI ---
HPI - Nausea/Vomiting/Diarrhea General Chief complaint: Nausea/Vomiting/Diarrhea Stated complaint: Headache/Nausea Source: patient and RN notes reviewed Mode of arrival: ambulatory Limitations: no limitations History of Present Illness HPI Narrative: 24-year-old male presented for complaint of a headache and nausea. Onset 0430 today. He states it was a migraine and is improving. Did not take anything. He says he never takes anything for migraines. Currently denies vomiting, diarrhea, fevers or lethargy. Requesting work note. Related Data Allergies Allergy/AdvReac Type Severity Reaction Status Date / Time No Known Allergies Allergy Verified 02/08/25 13:41 Review of Systems Review of Systems: per HPI All systems reviewed & are unremarkable except as noted in HPI and below PMFSH Past Medical History Medical History (Updated 02/08/25 @ 14:13 by Vita Ritchie, GRAVEL SCREENER) Anxiety and depression Bronchitis Healthy adult male Surgical History Surgical History (Updated 03/26/24 @ 14:52 by Ashlee Cintron CMA) History of orthopedic surgery Right ankle Family History Family History Other Unknown family medical history Social History Social History (Updated 03/26/24 @ 13:15 by Liza Muniz, GARRETT) Smoking status: Current every day smoker Tobacco type: e-cigarettes/vaping Alcohol intake: never Substance use type: does not use Do You Feel Safe in your Home?: Yes Lack of Transportation: No Lack of Food: Never True Current Housing: I Have Housing Concerned About Future Housing: No Difficulty Paying Gas/Electric Bills: No Difficulty Paying for Meds: No Currently Unemployed: YES Education: High School Diploma/GED Difficulty w/ Childcare or Family Care: No Comments At time of signature, I have reviewed and agree with nursing past medical, surgical, social and family history unless otherwise noted. Please see nursing chart for further information. There is no relevant family history pertinent to the presenting complaint Exam Narrative: GENERAL: Well-appearing, and in no acute distress. EYES: EOMI. Conjunctivae normal. ENT: Mucous membranes pink and moist. CHEST: No respiratory distress. Clear to auscultation. HEART: Regular rate and rhythm. No murmur appreciated. Normal peripheral pulses. ABDOMEN: abd soft, nondistended, normal active bowel sounds. Nontender abdomen SKIN: Warm, dry, no rash. Capillary refill normal. Normal skin turgor. NEURO: No focal deficits. Alert and oriented x3. PSYCH: Normal affect. Course Course Emergency Course: Patient is aware of diagnosis, understands and agrees to treatment plan. Anticipatory guidance given. Patient agrees to follow-up as directed and is aware of reasons to seek care at the emergency department. Portions of this record may have been created with voice recognition software Level of Care: Express Care Visit Vital Signs Vital signs: Vital Signs Temperature 98.7 F 02/08/25 13:36 Pulse Rate 101 H 02/08/25 13:36 Respiratory Rate 16 02/08/25 13:36 Blood Pressure 119/75 02/08/25 13:36 Pulse Oximetry 99 02/08/25 13:36 Oxygen Delivery Room Air 02/08/25 13:36 Temperature 98.7 F 02/08/25 13:36 Pulse Rate 101 H 02/08/25 13:36 Respiratory Rate 16 02/08/25 13:36 Blood Pressure 119/75 02/08/25 13:36 Pulse Oximetry 99 02/08/25 13:36 Oxygen Delivery Room Air 02/08/25 13:36 MDM - Nausea/Vomiting/Diarrhea MDM Narrative Medical decision making narrative: Discussed physical exam findings; pt reports improvement since onset of migraine this morning and is requesting work note. Advised supportive measures and signs/symptoms to go to the ER. Pt is appropriate for outpt treatment and f/u. Differential Diagnosis Differential diagnosis: Likely other (migraine, viral infection) Discharge Plan Discharge Clinical Impression: Headache Patient Disposition: Home Condition: Stable Instructions: Migraine Headache (ED) Additional Instructions: Rest in a cool dark room Avoid screens (computers, tablets, phones, television) Drink plenty fluids. Tylenol 1000mg every 8 hours as needed Follow up with your primary care provider in 1 week Go to the ER for worsening symptoms or concerns Patient Language: Maltese Prescriptions: No Action penicillin V potassium 500 mg tablet 500 mg PO Q12H 10 Days Qty: 20 0RF ondansetron 4 mg tablet,disintegrating 4 mg PO Q6H PRN (Reason: nausea and vomiting) Qty: 4 0RF Follow-up/Referrals: PHYSICIAN,ALARM TECHNICIAN [Primary Care Provider] - Stand Alone Forms: Work/School Release IP Time of Disposition: 14:13
== END 2025-02-08 14:20 | disposition home or self-care (01) ==
PROVIDERS: Emergency Provider Nurse Practitioner Family
DX: R51.9 Headache, unspecified (principal); F17.290 Nicotine dependence, other tobacco product, uncomplicated
CPT/HCPCS: 99211; G0463

== ENCOUNTER 2025-02-24 15:38 | Emergency (ER) | payer BC, SELFPAY ==
[2025-02-24 15:43] VITALS: BP 133/61; PULSE 86; RESP 20; TEMP 37.3; O2SAT 98
--- NOTE | 2025-02-24 16:02 | ED.GENADULT ---
HPI - General Adult General Chief complaint: Headache Stated complaint: Headache Time Seen by Provider: 02/24/25 16:03 Source: patient Mode of arrival: ambulatory Limitations: no limitations History of Present Illness HPI narrative: 24-year-old male presents with complaint of headaches over the past several weeks. States that he had blurry vision prior to headache starting. Headache last several hours and then resolves. Has not needed to take any emos-jvs-marsdgw pain medications to treat headache. Today it got a headache with mild nausea and had to call into work. Here for a work note. Does not have a primary care physician for follow-up. No neurological deficits. Patient reports that his mother has history migraines so assumed he is having same thing. All systems reviewed and negative except as noted above. Related Data Allergies Allergy/AdvReac Type Severity Reaction Status Date / Time No Known Allergies Allergy Verified 02/24/25 15:50 Review of Systems Review of Systems: CONSTITUTIONAL: Denies fever, chills, or sweats. EYES: Denies visual changes, redness, or discharge. ENT: Denies rhinorrhea, congestion, sore throat, or otalgia. CARDIOVASCULAR: Denies chest pain, palpitations, or edema. RESPIRATORY: Denies cough or dyspnea. GASTROINTESTINAL: Denies abdominal pain, nausea, vomiting, or diarrhea. GENITOURINARY: Denies dysuria or hematuria. SKIN: Denies rash or itching. MUSCULOSKELETAL: Denies back pain, joint pain, or myalgia. NEUROLOGIC: Reports headache. Denies numbness, or weakness. PSYCHIATRIC: Denies anxiety or depression. All other systems reviewed are negative, except as documented in HPI. [facility] Past Medical History Medical History (Updated 02/24/25 @ 16:14 by Carol Bowens NP) Anxiety and depression Bronchitis Healthy adult male Surgical History Surgical History (Updated 03/26/24 @ 14:52 by Ashlee Cintron CMA) History of orthopedic surgery Right ankle Family History Family History Other Unknown family medical history Social History Social History (Updated 03/26/24 @ 13:15 by GARRETT Watt) Smoking status: Current every day smoker Tobacco type: e-cigarettes/vaping Alcohol intake: never Substance use type: does not use Do You Feel Safe in your Home?: Yes Lack of Transportation: No Lack of Food: Never True Current Housing: I Have Housing Concerned About Future Housing: No Difficulty Paying Gas/Electric Bills: No Difficulty Paying for Meds: No Currently Unemployed: YES Education: High School Diploma/GED Difficulty w/ Childcare or Family Care: No Comments At time of signature, agree with nursing past medical, surgical, social and family history. There is no relevant family history pertinent to the presenting complaint. Exam Narrative: GENERAL: This is a well-nourished, well-developed patient, in no apparent distress. HEAD: normocephalic, atraumatic. EYES: PERRL. Sclera clear/white. Vision is grossly intact. extraocular motions intact EARS: External ears normal, auditory canals clear and without drainage, TMs normal without perforation. Hearing grossly intact. NOSE: External nose normal with no obvious nasal discharge, nares without redness, no rhinorrhea. THROAT: Mucous membranes moist, posterior pharynx clear. NECK: Neck supple, non-tender without lymphadenopathy, masses or thyromegaly. CARDIOVASCULAR: Regular rate and rhythm without murmurs, gallops, or rubs. RESPIRATORY: Clear to auscultation. Breath sounds equal bilaterally. No wheezes, rales, or rhonchi. SKIN: warm, Dry, intact with no suspicious lesions or rash, good texture and turgor. NEURO: awake, alert, and oriented to person, place and time. There were no obvious focal neurologic abnormalities. EXTREMITIES: No joint tenderness, effusion, or edema noted. Course Course Level of Care: Express Care Visit Vital Signs Vital signs: Vital Signs Temperature 37.3 C 02/24/25 15:43 Pulse Rate 86 02/24/25 15:43 Respiratory Rate 02/24/25 15:43 Blood Pressure 133/61 02/24/25 15:43 Pulse Oximetry 98 02/24/25 15:43 Oxygen Delivery Room Air 02/24/25 15:43 Temperature 37.3 C 02/24/25 15:43 Pulse Rate 86 02/24/25 15:43 Respiratory Rate 20 02/24/25 15:43 Blood Pressure 133/61 02/24/25 15:43 Pulse Oximetry 98 02/24/25 15:43 Oxygen Delivery Room Air 02/24/25 15:43 reviewed Medical Decision Making MDM Narrative Medical decision making narrative: patient reports that symptoms have almost resolved. At this time rates pain 2/10. Patient offered Toradol IM but he did not feel was necessary. Will discharge with ibuprofen and Zofran. Recommend follow-up with primary care physician at next available appointment for further evaluation of headaches. Patient is alert, nontoxic. Well-appearing. Vital Signs Vital Signs: Vital Signs Temperature 37.3 C 02/24/25 15:43 Pulse Rate 86 02/24/25 15:43 Respiratory Rate 20 02/24/25 15:43 Blood Pressure 133/61 02/24/25 15:43 Pulse Oximetry 98 02/24/25 15:43 Oxygen Delivery Room Air 02/24/25 15:43 Temperature 37.3 C 02/24/25 15:43 Pulse Rate 86 02/24/25 15:43 Respiratory Rate 20 02/24/25 15:43 Blood Pressure 133/61 02/24/25 15:43 Pulse Oximetry 98 02/24/25 15:43 Oxygen Delivery Room Air 02/24/25 15:43 Discharge Plan Discharge Clinical Impression: Headache Qualifiers: Headache chronicity pattern: acute headache Patient Disposition: Home Condition: Stable Instructions: Acute Headache (ED) Additional Instructions: Take medications as prescribed to treat headaches. Drink at least 64 ounces of water a day. follow-up with primary care physician to further evaluate your headaches. Patient Language: Cypriot Prescriptions: New ibuprofen 800 mg tablet 800 mg PO TID PRN (Reason: pain) Qty: 30 0RF ondansetron 4 mg tablet,disintegrating 4 mg PO Q8H PRN (Reason: nausea and vomiting) Qty: 12 0RF Follow-up/Referrals: PHYSICIAN,RETAIL AND RESTAURANT [Primary Care Provider] - Stand Alone Forms: Work/School Release IP Time of Disposition: 16:14
--- OUTSIDE RECORDS SUMMARY | 2025-02-24 17:49 | XMS_ITS | Clinical Summary ---
Author Organization [facility] Address [address] [place] [address] Phone Care Team Providers Care Emissions Inspector Name Role Phone Unavailable Primary Care Provider Unavailabl e Social History Tobacco Use Types Packs/Day Years Used Date Smoking Tobacco: Never Assessed Sex and Gender Information Value Date Recorded Sex Assigned at Not on file Legal Sex Male 5:04 PM CDT Gender Identity Not on file Sexual Orientation Not on file Plan of Treatment Upcoming Encounters Date Type Department Care Team (Late st Contact Info) Description 03/15/2025 4:45 PM CDT Office Visit [facility] - Primary Care - [place] [address] [place] [address] Hilario Ta, PAC [address] [place] [address]
--- OUTSIDE RECORDS SUMMARY | 2025-02-24 17:49 | XMS_ITS | Clinical Summary ---
Author Organization [facility] Address [address] [address] Care Team Providers Care Joist Setter Name Role Phone Unavailable Primary Care Provider Unavailabl e Source Comments [facility],non-owned Affiliates and Associated Physician Practices is amultiple site organization consisting of ambulatory clinics and hospital sitesin [place], [place], [place] and [place]. This disclosure is being madepursuant to the Care Everywhere program and may not contain all information available regarding this patient. 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
== END 2025-02-24 16:22 | disposition home or self-care (01) ==
PROVIDERS: Emergency Provider Nurse Practitioner Family
DX: R51.9 Headache, unspecified (principal); F17.290 Nicotine dependence, other tobacco product, uncomplicated
CPT/HCPCS: 99213; G0463

== ENCOUNTER 2025-05-17 14:37 | Emergency (ER) | payer BC, SELFPAY ==
--- OUTSIDE RECORDS SUMMARY | 2025-05-17 14:41 | XMS_ITS | Clinical Summary ---
Author Organization [facility] Address [address] [place] [address] Care Team Providers Care Property Preservation Specialist Name Role Phone No, Physician Primary Care Provider [phone] Allergies No known active allergies Medications naproxen (NAPROSYN) 500 mg tablet Take 1 tablet (500 mg total) by mouth 2 (two) times a day with meals 14 tablet 03/10/2025 Active Encounters Date Type Department Care Team Description 03/10/2025 2:30 AM CDT - 03/10/2025 3:43 AM CDT [facility] Emergency Department [address] [place] [address] Yovany Wolfe MD Fall, initial encounter (Primary Dx); Rib contusion, right, initial encounter Discharge Disposition: Discharge to home or self care from Last 3 Months Social History Tobacco Use Types Packs/Day Years Used Date Smoking Tobacco: Never Assessed Personal Safety Answer Date Recorded Have you ever been in or are you currently in a harmful physical or emotional relationship or is someone making you feel afraid or unsafe? 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 Gender Identity Not on file Sexual Orientation Not on file Last Filed Vital Signs Vital Sign Reading Time Taken Comments Blood Pressure 144/74 03/10/2025 3:19 AM CDT Pulse 90 03/10/2025 3:19 AM CDT Temperature 37.1 C (98.8 F) 03/10/2025 2:18 AM CDT Respiratory Rate 16 03/10/2025 3:19 AM CDT Oxygen Saturation 99% 03/10/2025 3:19 AM CDT Inhaled Oxygen Concentration - - Weight 90.7 kg (200 lb) 03/10/2025 2:18 AM CDT Height 167.6 cm (5' 6) 03/10/2025 2:18 AM CDT Body Mass Index 32.28 03/10/2025 2:18 AM CDT Plan of Treatment Health Maintenance Due Date Last Done Comments Depression Screening 2001 Hepatitis C Screening 2001 Meningococcal B Vaccine (1 o f 2 - Standard) 2017 Regular Well Visit/Exam 18-64 2019 DTaP/Tdap/Td Vaccine (7 - Td or Tdap) 05/19/2023 05/19/2013, 04/04/2007, 06/17/2003, Additional history exists Influenza Vaccine (#1) 2025 7, 07/14/2015, 07/19/2014 Hepatitis B Screening Completed 06/08/2002 , 2001, 2001 Pneumococcal vaccine <65 Completed 003, 03/09/2002, 01/06/2002, Additional history exists Varicella Vaccines Completed 04/04/2007, 09/14/2002 HPV Vaccines Completed 04/14/2015, 12/2013, 06/18/2014 Procedures Procedure Name Priority Date/Time Associated Diagnosis Comments XR CHEST PA LATERAL 2 VIEWS ED 03/10/2025 2:27 AM CDT from Last 3 Months Results * XR Chest PA Lateral 2 Views (03/10/2025 2:27 AM CDT) Anatomical Region Laterality Modality Body, Chest N/A Computed Radiogr aphy 03/10/2025 2:39 AM CDT Narrative 03/10/2025 2:39 AM CDT EXAM DESCRIPTION: XR CHEST PA LATERAL 2 VIEWS REASON FOR STUDY: accidental injury C/o having a fall tonight and is having right anterior/lower rib pain. Current smoker No surgery TECHNIQUE: Frontal and lateral radiographic views of the chest acquired. COMPARISON: None. FINDINGS: LUNGS/PLEURA: No focal consolidation or pneumothorax. No pleural effusion. HEART/MEDIASTINUM: Cardiac silhouette is normal. Remaining mediastinal silhouettes are unremarkable. HARDWARE/LINES/TUBES: None. BONES: No acute findings. IMPRESSION: No acute cardiopulmonary abnormality. THIS IS AN ELECTRONICALLY VERIFIED FINAL REPORT 03/10/2025 2:39 AM - Electronically signed by Kristal Saenz M.D. SN: SN Report ID: [id number] Reading Location: [id number] Procedure Note Kristal Saenz MD - 03/10/2025 EXAM DESCRIPTION: XR CHEST PA LATERAL 2 VIEWS REASON FOR STUDY: accidental injury C/o having a fall tonight and is having right anterior/lower rib pain. Current smoker No surgery TECHNIQUE: Frontal and lateral radiographic views of the chest acquired. COMPARISON: None. FINDINGS: LUNGS/PLEURA: No focal consolidation or pneumothorax. No pleuraleffusion. HEART/MEDIASTINUM: Cardiac silhouette is normal. Remaining mediastinal silhouettes are unremarkable. HARDWARE/LINES/TUBES: None. BONES: No acute findings. IMPRESSION: No acute cardiopulmonary abnormality. THIS IS AN ELECTRONICALLY VERIFIED FINAL REPORT 03/10/2025 2:39 AM - Electronically signed by Kristal Saenz M.D. SN: SN Report ID: [id number] Reading Location: [id number] Yovany Wolfe MD IMG XR PROCEDURES Final Result from Last [address] [place] [address] Care Teams Property Preservation Specialist Relationship Specialty Start Date End Date No, Physician PCP - General 03/10/25
--- OUTSIDE RECORDS SUMMARY | 2025-05-17 14:41 | XMS_ITS | Clinical Summary ---
Author Organization [facility] Address [address] [place] [address] Phone Care Team Providers Care Web Knitter Name Role Phone Hilario Ta Primary Care Provider Allergies No known active allergies Medications SUMAtriptan (IMITREX) 50 MG TabletIndication s:Intractable migraine without aura and without status migrainosus Take 1 Tablet by mouth once as needed for Migraine. Use as directed. May repeat dose in 2 hours if headache recurs. 9 Tablet Active Active Problems No known active problems Encounters Date Type Department Care Team Description 04/12/2025 Documentation Only [facility] [address] [place] [id number] Claudia Mae, PT 03/15/2025 4:45 PM CDT Office Visit [facility] Primary Care - [place] [id number] [place] [address] Hilario Ta PAC Intractable migraine without aura and without status migrainosus (Primary Dx); Patellar subluxation, right, initial encounter; Acute pain of right knee; Rib pain Discharge Disposition: Discharged to home or Selfcare 03/15/2025 Travel 02/25/2025 Telephone [facility] [address] [place] [phone] Hilario Ta PAC from Last 3 Months Immunizations Immunization Administration Dates Next Due DTAP VACCINE 04/04/2007, 3,03/09/2002,01/06,2001 Hepatitis A Vaccine, Pediatric/adolescent, 2 Dose Schedule 05/19/2013 Hepatitis A, Pediatric, Unsp ecified Formulation 04/04/2007 Hepatitis B Vaccine, Pediatric/adolescent 06/08/2002,2001,2001 Hib (PRP-OMP) Vaccine 06/17/2003 Hib Vaccine,unspecified Formulation 03/09/2002,0 01/06/2002,2001 Human Papillomavirus Vaccine (HPV), quadrivalent 04/14/2015,08/19/2014,06/18/2014 Inactivated Polio Vaccine 04/04/2007,10/2002,01/06/2002,11/06 Influenza Vaccine, Quadrivalent, PF 08/02/2017,1 ,07/19/2014 MMR Vaccine 06/17/2003 MMRV 04/04/2007,09/14/2002 Meningococcal MCV4O 11/12/2017 Meningococcal Vaccine 06/18/2014 Pneumococcal Vaccine Peds - 7 Valent 10/2002,03/09/2002,01/06/2002,11/06 TDAP Vaccine 05/19/2013 Family History Medical History Relation Name Comments No Known Problems Brother No Known Problems Father No Known Problems Maternal Grandfather No Known Problems Maternal Grandmother No Known Problems Mother No Known Problems Paternal Grandfather No Known Problems Paternal Grandmother No Known Problems Sister 1 No Known Problems Sister 2 No Known Problems Sister 3 No Known Problems Sister 4 No Known Problems Sister 5 No Known Problems Sister 6 Relation Name Status Comments Brother Alive Father Alive Maternal Grandfather Maternal Grandmother Alive Mother Alive Paternal Grandfather Paternal Grandmother Sister 1 Alive Sister 2 Alive Sister 3 Alive Sister 4 Alive Sister 5 Alive Sister 6 Alive Social History Tobacco Use Types Packs/Day Years Used Date Smoking Tobacco: Never Passive Smoke Exposure: Never Smokeless Tobacco: Never Tobacco Cessation:Counseling Given: No Alcohol Use Standard Drinks/Week Comments Yes 0 (1 standard drink = 0.6 oz pur e alcohol) occasionally PHQ-2 Answer Date Recorded Total Score - Questions 1-9 0 02/16 Social Connection and Isolation Panel Answer Date Recorded In a typical week, how many times do you talk on the phone with family, friends, or neighbors? Patient declined 03/15/2025 How often do you get togethe r with friends or relatives? Patient declined 03/15/2025 How often do you attend uatsdin or baptism serv ices? Patient declined 03/15/2025 Do you belong to any clubs o r organizations such as uatsdin groups, unions, fraternal or athletic groups, or school groups? Patient declined 03/15/2025 How often do you attend meet ings of the clubs or organizations you belong to? Patient declined 03/15/2025 Are you , , di vorced, , never , or living with a partner? Patient declined 03/15/2025 AUDIT-C Answer Date Recorded Q1: How often do you have a drink containing alc ohol? Patient declined 03/15/2025 Q2: How many drinks containi ng alcohol do you have on a typical day when you are drinking? Patient declined 03/15/2025 Q3: How often do you have si x or more drinks on one occasion? Patient declined 03/15/2025 Overall Financial Resource Strain (CARDIA) Answe r Date Recorded How hard is it for you to pa y for the very basics like food, housing, medical care, and heating? Patient declined 03/15/2025 [facility] - Occupational Stress Questionnaire Answer Date Recorded Do you feel stress - tense, restless, nervous, or anxious, or unable to sleep at night because your mind is troubled all the time - these days? Patient declined 03/15/2025 Exercise Vital Sign Answer Date Recorde d On average, how many days pe r week do you engage in moderate to strenuous exercise (like a brisk walk)? Patient declined On average, how many minutes do you engage in exercise at this level? Patient declined 03/15/2025 Hunger Vital Sign Answer Date Recorded Within the past 12 months, y ou worried that your food would run out before you got the money to buy more. Patient declined Within the past 12 months, t he food you bought just didn't last and you didn't have money to get more. Patient declined PRAPARE - Transportation Answer Date Re corded In the past 12 months, has l ack of transportation kept you from medical appointments or from getting medications? Patient declined 03/15/2025 In the past 12 months, has l ack of transportation kept you from meetings, work, or from getting things needed for daily living? Patient declined 03/15/2025 Housing Stability Vital Sign Answer Jose L e Recorded In the last 12 months, was t here a time when you were not able to pay the mortgage or rent on time? Patient declined 03/15/20 25 Number of Times Moved in the Last Year Not on fi le 03/15/2025 Homeless in the Last Year Not on file 2024 [facility] Utilities Answer Date Recorded In the past 12 months has th e electric, gas, oil, or water company threatened to shut off services in your home? Patient declined 03/15/2025 Sexually Active Control Partners Comments Yes Female Sex and Gender Information Value Date Recorded Sex Assigned at Not on file Legal Sex Male 5:04 PM CDT Gender Identity Not on file Sexual Orientation Not on file Occupation Industry Job Start Date Job End Date [employer] Not on file Not on file Not on file Last Filed Vital Signs Vital Sign Reading Time Taken Comments Blood Pressure 100/58 03/15/2025 4:57 PM CDT Pulse 83 03/15/2025 4:57 PM CDT Temperature 37.4 C (99.3 F) 03/15/2025 4:57 PM CDT Respiratory Rate 18 03/15/2025 4:57 PM CDT Oxygen Saturation 95% 03/15/2025 4:57 PM CDT Inhaled Oxygen Concentration - - Weight 95.3 kg (210 lb) 03/15/2025 4:57 PM CDT Height 167.6 cm (5' 6) 03/15/2025 4:57 PM CDT Body Mass Index 33.89 03/15/2025 4:57 PM CDT Plan of Treatment Upcoming Encounters Date Type Department Care Team (Late st Contact Info) Description 03/16/2026 9:30 AM CDT Office Visit [facility] - [place] - [place] [address] [place] [address] Hilario Ta, PAC [address] [place] [address] Health Maintenance Due Date Last Done Comments Hepatitis C Virus (HCV) Screening 2001 Meningococcal B Immunization (1 of 2 - Standard) 2017 DTaP/Tdap/Td Immunization (7 - Td or Tdap) 05/19/2023 05/19/2013, 04/04/2007, 06/17/2003, Additional history exists SARS-COV-2 Immunization ( season) 2024 Influenza Immunization (#1) 05/17/202507/17, 07/14/2015, 07/19/2014 Respiratory Syncytial Virus (RSV) Immunization (Adult) (1 - 1-dose 75+ series) 2076 Hepatitis B Immunization Completed 002, 2001, 2001 Pneumococcal Immunization Combined Aged Out 06/17/2003, 03/09/2002, 01/06/2002, Additional history exists No longer eligible based on patient's age to complete this topic TdaP Immunization Discontinued 05/19/2013 Human Papillomavirus (HPV) Immunization Completed 04/14/2015, 08/19/2014, 06/18/2014 Meningococcal Immunization (ACWY) Completed 11/12/2017, 06/18/2014 Rotavirus Immunization Aged Out No lo nger eligible based on patient's age to complete this topic Insurance Care Teams Web Knitter Relationship Specialty Start Date End Date Hilario Ta PAC [address], [place] [address] PCP - General Physician Software Security Consultant 03/15/25
[2025-05-17 14:46] VITALS: BP 124/78; PULSE 75; RESP 16; TEMP 36.6; O2SAT 100
[2025-05-17 15:23] LABS: EDSTREPNEGPOS1 Negative (Negative)
--- NOTE | 2025-05-17 15:36 | ED.URI ---
HPI - URI/Sore Throat General Chief Complaint: Upper Respiratory Infection Stated Complaint: throat/sinus Time Seen by Provider: 05/17/25 15:36 Source: patient and RN notes reviewed Mode of arrival: ambulatory Limitations: no limitations History of Present Illness HPI Narrative: 24-year-old male presents Express Care complaining sore throat, cough, congestion for 2 days. Patient has taken Tylenol ibuprofen with some relief. Patient denies any other upper respiratory symptoms, chest pain, shortness of breath, nausea vomiting, diarrhea, fevers, eczema chills, or any other symptoms. Related Data Home Medications ?Medication ?Instructions ?Recorded ?Confirmed ?Last Taken ?Type No Home Medications 05/17/25 Unknown History Allergies Allergy/AdvReac Type Severity Reaction Status Date / Time No Known Allergies Allergy Verified 05/17/25 15:25 Review of Systems Review of Systems: CONSTITUTIONAL: Denies fever, chills, body aches, or sweats. EYES: Denies visual changes, redness, or discharge. ENT: Positive for rhinorrhea, congestion, sore throat. Negative for otalgia. CARDIOVASCULAR: Denies chest pain, palpitations, or edema. RESPIRATORY: Positive for cough. Negative for dyspnea. GASTROINTESTINAL: Denies abdominal pain, nausea, vomiting, or diarrhea. GENITOURINARY: Denies dysuria or hematuria. SKIN: Denies rash or itching. MUSCULOSKELETAL: Denies back pain, joint pain, or myalgia. NEUROLOGIC: Denies headache, numbness, or weakness. PSYCHIATRIC: Denies anxiety or depression. All other systems reviewed are negative, except as documented in HPI. [facility]LY [facility] Past Medical History Medical History Anxiety and depression Bronchitis Healthy adult male Surgical History Surgical History History of orthopedic surgery Right ankle Family History Family History Other Unknown family medical history Social History Social History Smoking status: Current every day smoker Tobacco type: e-cigarettes/vaping Alcohol intake: never Substance use type: does not use Do You Feel Safe in your Home?: Yes Lack of Transportation: No Lack of Food: Never True Current Housing: I Have Housing Concerned About Future Housing: No Difficulty Paying Gas/Electric Bills: No Difficulty Paying for Meds: No Currently Unemployed: YES Education: High School Diploma/GED Difficulty w/ Childcare or Family Care: No Comments At the time of my signature, I reviewed and agree with the nursing past medical, surgical, social, and family history. There is no relevant family history pertinent to the patient complaint. Exam Narrative: GENERAL: This is a well-nourished, well-developed adult, in no apparent distress. They are non ill-appearing, nontoxic appearing. HEAD: normocephalic, atraumatic. EYES: Sclera clear/white. Vision is grossly intact. Conjunctiva normal bilaterally. Extraocular movements intact. EARS: External ears normal, auditory canals clear and without drainage, TMs without erythema or perforation. Hearing grossly intact. NOSE: External nose normal with no obvious nasal discharge, nasal turbinates erythematous, no rhinorrhea. THROAT: Mucous membranes moist, posterior pharynx erythematous without exudate. Uvula is midline. Postnasal drip present. NECK: Neck supple, non-tender without lymphadenopathy, masses or thyromegaly. CARDIOVASCULAR: Regular rate and rhythm without murmurs, gallops, or rubs. RESPIRATORY: Clear to auscultation. Breath sounds equal bilaterally. No wheezes, rales, or rhonchi. SKIN: warm, Dry, intact with no suspicious lesions or rash, good texture and turgor. NEURO: awake, alert, and oriented to person, place and time. There were no obvious focal neurologic abnormalities. EXTREMITIES: No joint tenderness, effusion, or edema noted. BACK: Nontender without deformity. Course Course Emergency Course: Portions of this record may have been created with voice recognition software Level of Care: Express Care Visit Vital Signs Vital signs: Vital Signs Temperature 97.9 F 05/17/25 14:46 Pulse Rate 75 05/17/25 14:46 Respiratory Rate 16 05/17/25 14:46 Blood Pressure 124/78 05/17/25 14:46 Pulse Oximetry 100 05/17/25 14:46 Oxygen Delivery Room Air 05/17/25 14:46 Temperature 97.9 F 05/17/25 14:46 Pulse Rate 75 05/17/25 14:46 Respiratory Rate 16 05/17/25 14:46 Blood Pressure 124/78 05/17/25 14:46 Pulse Oximetry 100 05/17/25 14:46 Oxygen Delivery Room Air 05/17/25 14:46 MDM - URI/Sore Throat MDM Narrative Medical decision making narrative: Rapid strep negative. A throat culture is pending. Symptoms likely viral in etiology. Discussed physical exam findings. Advised supportive measures and signs/symptoms to go to the ER. Pt is appropriate for outpt treatment and f/u. Differential Diagnosis Differential diagnosis: Likely upper respiratory infection, sinusitis, viral infection and pharyngitis Lab Data Attestation: I reviewed the patient's lab results. Labs: Lab Results 05/17/25 Range/Units 15:21 POC Grp A Strep Screen Negative (Negative) Discharge Plan Discharge Clinical Impression: Upper respiratory infection Qualifiers: URI type: unspecified viral URI Qualified Code(s): J06.9 - Acute upper respiratory infection, unspecified Patient Disposition: Home Condition: Stable Instructions: Upper Respiratory Infection (ED) Additional Instructions: Your rapid strep swab was negative today at [facility]. You will be notified in a few days if the culture comes back positive for strep, and appropriate antibiotics will be called in for you at that time. Your symptoms are likely due to a viral illness, which is not treated with antibiotics. Viral symptoms can be present for up to 10-14 days. Take Tylenol or ibuprofen for fever or pain. Rest and stay hydrated. Follow up with your PCP in 3-5 days if symptoms are not improving. Go to the ER immediately if you developed difficulty breathing or swallowing Patient Language: Azerbaijani Prescriptions: No Action No Home Medications Follow-up/Referrals: PHYSICIAN,PROTECTIVE SERVICES SOCIAL WORKER [Primary Care Provider, Internal Medicine] Time of Disposition: 15:36
== END 2025-05-17 15:42 | disposition home or self-care (01) ==
DX: J06.9 Acute upper respiratory infection, unspecified (principal); F17.290 Nicotine dependence, other tobacco product, uncomplicated
CPT/HCPCS: 87880; 99213; G0463

== ENCOUNTER 2025-08-16 10:49 | Emergency (ER) | payer BC, SELFPAY ==
[2025-08-16 11:01] VITALS: BP 134/64; PULSE 79; RESP 16; TEMP 36.5; O2SAT 100
--- NOTE | 2025-08-16 11:14 | ED.URI ---
HPI - URI/Sore Throat General Chief Complaint: Upper Respiratory Infection Stated Complaint: Sore Throat/Cough Time Seen by Provider: 08/16/25 11:14 Source: patient, RN notes reviewed and old records reviewed Mode of arrival: ambulatory Limitations: no limitations History of Present Illness HPI Narrative: 24 year old male who presents to [facility] care with complaints of having sore throat and cough for the past 5 days. Patient reports that he has not had any fevers, chills, or sweats, denies any body aches, has been able to eat and drink without difficulty. Patient reports history of strep in the past and bbronchitis. He has not taken any OTC medications for his symptoms. MD elicited complaint: cough, sore throat, rhinorrhea and nasal congestion Pertinent past history: other (strep and bronchitis) Onset (ago): day(s) (5) Pain scale (0-10): 2 Able to tolerate fluids by mouth: Yes Treatments prior to arrival: none Related Data Allergies Allergy/AdvReac Type Severity Reaction Status Date / Time No Known Allergies Allergy Verified 08/16/25 11:00 Review of Systems Review of Systems: CONSTITUTIONAL: Denies malaise, chills, sweats, or fever. EYES: Denies visual changes, redness, or discharge. ENT: Reports rhinorrhea, congestion,no sinus pain,no otalgia and + sore throat. CARDIOVASCULAR: Denies chest pain, palpitations, or edema. RESPIRATORY: Reports cough.? Denies dyspnea. GASTROINTESTINAL: Denies abdominal pain, nausea, vomiting, diarrhea SKIN: Denies rash or itching. MUSCULOSKELETAL: Denies myalgia. NEUROLOGIC: Denies headache. All systems reviewed & are unremarkable except as noted in HPI and below PMFSH Past Medical History Medical History Anxiety and depression Bronchitis Healthy adult male Surgical History Surgical History History of orthopedic surgery Right ankle Family History Family History Other Unknown family medical history Social History Social History Smoking status: Current every day smoker Tobacco type: e-cigarettes/vaping Alcohol intake: never Substance use type: does not use Lack of Transportation: No Lack of Food: Never True Current Housing: I Have Housing Concerned About Future Housing: No Difficulty Paying Gas/Electric Bills: No Difficulty Paying for Meds: No Currently Unemployed: YES Education: High School Diploma/GED Difficulty w/ Childcare or Family Care: No Comments At time of signature, agree with nursing past medical, surgical, social and family history. There is no relevant family history pertinent to the presenting complaint Exam Narrative: GENERAL: Well-appearing, well-nourished, and in no acute distress. HEAD: Normocephalic EYES: PERRLA, conjunctivae clear ENT: Nares clear, turbinates edematous and erythematous, clear discharge. Mucous membranes moist. TM pearly carvajal with dull light reflex bilaterally; no tragal tenderness. Oropharynx erythematous without lesions. Tonsils minimally enlarged and without exudate, no drooling, no hoarseness, no trismus, uvula midline.post nasal drainage. NECK: Supple. No lymphadenopathy CHEST: Clear to auscultation, breath sounds equal. No wheezing, rhonchi, rales, or stridor. No respiratory distress, speaks in full sentences.dry cough noted SAO2 100% on room air HEART: Regular rate and rhythm. No murmur heard. SKIN: Warm, dry, no rash. NEURO: Alert and oriented x3. PSYCH: Normal mood and affect Course Course Emergency Course: Patient is aware of diagnosis, understands and agrees to treatment plan.? Anticipatory guidance given.? Patient agrees to follow-up as directed and is aware of reasons to seek care at the emergency department. Portions of this record may have been created with voice recognition software Level of Care: Express Care Visit Vital Signs Vital signs: Vital Signs Temperature 36.5 C 08/16/25 11:01 Pulse Rate 79 08/16/25 11:01 Respiratory Rate 16 08/16/25 11:01 Blood Pressure 134/64 08/16/25 11:01 Pulse Oximetry 100 08/16/25 11:01 Oxygen Delivery Room Air 08/16/25 11:01 Temperature 36.5 C 08/16/25 11:01 Pulse Rate 79 08/16/25 11:01 Respiratory Rate 16 08/16/25 11:01 Blood Pressure 134/64 08/16/25 11:01 Pulse Oximetry 100 08/16/25 11:01 Oxygen Delivery Room Air 08/16/25 11:01 Reviewed MDM - URI/Sore Throat MDM Narrative Medical decision making narrative: Differential diagnosis considered: Lee virus, strep pharyngitis, allergic rhinitis, upper respiratory tract infection, sinusitis, rhinosinusitis, nasopharyngitis. viral pharyngitis, otitis media, otitis externa, pneumonia, bronchitis, viral cough syndrome, viral syndrome, and influenza.? Exam findings show no acute concerns or changes; patient is non-toxic appearing and is in no distress.? Patient is appropriate for outpatient treatment and follow-up. Differential Diagnosis Differential diagnosis: Likely upper respiratory infection, sinusitis, viral infection, bronchitis, pharyngitis and other (strep pharyngitis, cough) Medical Records Attestation: I reviewed the patient's medical records. Lab Data Attestation: I reviewed the patient's lab results. Lab results narrative: strep screen negative, culture sent Labs: Lab Results 08/16/25 Range/Units 10:59 POC Grp A Strep Screen Negative (Negative) Critical Care Time Critical Care Time Critical Care Time: No Discharge Plan Discharge Clinical Impression: Pharyngitis Qualifiers: Pharyngitis/tonsillitis etiology: unspecified etiology Qualified Code(s): J02.9 - Acute pharyngitis, unspecified Patient Disposition: Home Condition: Stable Instructions: Antibiotic Form, Upper Respiratory Infection (ED) Additional Instructions: Increase fluids especially juices and water [id number] cough and cold medicine of your choice for your symptoms Zyrtec Claritin or Ofelia daily may include plain Sudafed daily Tylenol or Ibuprofen for any fever or pain Steroids as directed--take with food heat to the face 20-30 minutes 4-6 times a day for pain Salt water gargles, throat lozenges or throat sprays as desired Your strep test today was negative. A throat culture will be sent to the laboratory for further testing. IF the test is positive, you will receive a phone call within 48 hours and an appropriate antibiotic will be initiated at that time. If your symptoms persist, change or worsen significantly before you can contact your personal physician then please, without delay, go to the emergency department for further evaluation. Follow-up with PCP in 7-10 days or sooner if needed Follow up with PCP soon in regards to your blood pressure which is elevated above threshold for referral. Blood pressure above 120/80 may indicate pre-hypertension.134/64 Patient Language: Congolese Prescriptions: New methylprednisolone [Medrol (Neri)] 4 mg tablets,dose pack See Rx Instructions .ROUTE .COMPLEX Qty: 21 0RF Rx Instructions: orally per package directions take with food Follow-up/Referrals: Keyon,Hilario Summers [Primary Care Provider, Unknown] Stand Alone Forms: Work/School Release IP Time of Disposition: 11:29 Quality Henderson Coma Scale Eyes: Open Verbal: Oriented and Alert Motor: Follows Commands Kenan Coma Total Score: 15
[2025-08-16 11:18] LABS: EDSTREPNEGPOS1 Negative (Negative)
--- OUTSIDE RECORDS SUMMARY | 2025-08-16 12:21 | XMS_ITS | Clinical Summary ---
Author Organization [facility] Address [address] [place] [address] Care Team Providers Care Sticker On Name Role Phone No, Physician Primary Care Provider [phone] Allergies No known active allergies Medications naproxen (NAPROSYN) 500 mg tablet Take 1 tablet (500 mg total) by mouth 2 (two) times a day with meals 14 tablet 03/10/2025 Active Social History Tobacco Use Types Packs/Day Years Used Date Smoking Tobacco: Never Assessed Personal Safety Answer Date Recorded Have you ever been in or are you currently in a harmful physical or emotional relationship or is someone making you feel afraid or unsafe? 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
--- OUTSIDE RECORDS SUMMARY | 2025-08-16 12:21 | XMS_ITS | Clinical Summary ---
Author Organization [facility] Address [address] [place] [address] Phone Care Team Providers Care Solar Development Engineer Name Role Phone Hilario Ta Primary Care Provider [phone] Allergies Active Allergy Reactions Criticality Noted Date Comments Lactose Intolerance (Gi) Diarrhea 05/20/2025 cramping Medications SUMAtriptan (IMITREX) 50 MG TabletIndication s:Intractable migraine without aura and without status migrainosus Take 1 Tablet by mouth once as needed for Migraine. Use as directed. May repeat dose in 2 hours if headache recurs. 9 Tablet 5 Active meloxicam (MOBIC) 15 MG TabletIndication s:Strain of right ankle, initial encounter Take 1 Tablet by mouth daily for 30 days. Anti-inflamat ory 30 Tablet 5 07/24/20 25 Active Problems No known active problems Encounters Date Type Department Care Team Description 06/28/2025 2:15 PM CDT Office Visit [facility] - Primary Care - [place] [address] [place] [address] Hilario Ta, DESIRAE Sprain of anterior talofibular ligament of right ankle, subsequent encounter (Primary Dx) Discharge Disposition: Discharged to home or Selfcare 06/28/2025 Travel 06/24/2025 1:55 PM CDT Ancillary Procedure [facility] Diagnostic Radiology - [place] [address] [place] [address] Morales James MD Discharge Disposition: Discharged to home or Selfcare 06/24/2025 1:45 PM CDT Office Visit [facility] [address] [place] [phone] Morales James MD Strain of right ankle, initial encounter (Primary Dx) Discharge Disposition: Discharged to home or Selfcare 06/24/2025 Results Follow-Up [facility] [address] [place] [address] Morales James MD XR ANKLE 3 OR MORE VIEWS RIGHT 06/24/2025 Travel 06/24/2025 Nurse Triage [address] [address] Hilario Ta, PAC Advice Only; Ankle Injury 06/24/2025 Telephone [facility] [address] [place] [phone] Hilario Ta, PAC 05/20/2025 3:45 PM CDT Office Visit [facility] [address] [place] [address] Morales James MD URI, acute (Primary Dx); Strep pharyngitis Discharge Disposition: Discharged to home or Selfcare 05/20/2025 Travel 05/20/2025 Nurse Triage [address] [address] Hilario Ta, PAC Advice Only; Cough from Last 3 Months Immunizations Immunization Administration [...] declined 03/15/2025 How often do you attend scientology or lutheran serv ices? Patient declined 03/15/2025 Do you belong to any clubs o r organizations such as scientology groups, unions, fraternal or athletic groups, or [...] medical care, and heating? Patient declined 03/15/2025 [facility] of Occupat ional Health - Occupational Stress Questionnaire Answer Date [...] pay the mortgage or rent on time? No 06/28/2025 In the past 12 months, how m any times have you moved where you were living? 0 06/28/2025 At any time in the past 12 m [facility], were you homeless or living in a snf (including now)? No 06/28/2025 [facility] Utilities Answer Date Recorded In the past 12 months has e electric, gas, oil, or water company [...] Sign Reading Time Taken Comments Blood Pressure 90/62 06/28/2025 2:16 PM CDT Pulse 100 06/28/2025 2:16 PM CDT Temperature 37.4 C (99.3 F) 06/28/2025 2:16 PM CDT Respiratory Rate 18 06/28/2025 2:16 PM CDT Oxygen Saturation 98% 06/28/2025 2:16 PM CDT Inhaled Oxygen Concentration - - Weight 99.3 kg (219 lb) 06/28/2025 2:16 PM CDT Height 167.6 cm (5' 6) 06/28/2025 2:16 PM CDT Body Mass Index 35.35 06/28/2025 2:16 PM CDT Plan of Treatment Upcoming Encounters Date Type Department Care Team (Late st Contact Info) Description 03/16/2026 9:30 AM CDT Office Visit [facility] - Primary Care - [place] [address] [place] [address] Hilario Ta PAC [address] [place] [address] Health Maintenance Due Date Last Done Comments Hepatitis C Virus (HCV) Screening 2001 Meningococcal B Immunization (1 of 2 - Standard) 2017 DTaP/Tdap/Td Immunization (7 - Td or Tdap) 05/19/2023 05/19/2013, 04/04/2007, 06/17/2003, Additional history exists Influenza Immunization (#1) 05/17/202507/17, 07/14/2015, 07/19/2014 SARS-COV-2 Immunization ( season) 2025 Respiratory Syncytial Virus (RSV) Immunization (Adult) (1 - 1-dose 75+ series) 2076 Hepatitis B Immunization Completed 002, 2001, 2001 Pneumococcal Immunization Combined Aged Out 06/17/2003, 03/09/2002, 01/06/2002, Additional history exists No longer eligible based on patient's age to complete this topic Varicella Immunization Completed 04/04/2007, 2001 TdaP Immunization Discontinued 05/19/2013 Human Papillomavirus (HPV) Immunization Completed 04/14/2015, 08/19/2014, 06/18/2014 Meningococcal Immunization (ACWY) Completed 11/12/2017, 06/18/2014 Rotavirus Immunization Aged Out No lo nger eligible based on patient's age to complete this topic Procedures Procedure Name Priority Date/Time Associated Diagnosis Comments XR ANKLE 3 OR MORE VIEWS RIGHT Today 06/24/2025 2:02 PM CDT Strain of right ankle, initial encounter POC SARS-COV-2 BY MOLECULAR Routine 05/20/2025 4:11 PM CDT URI, acute POC GROUP A STREP BY MOLECULAR Routine 05/20/2025 4:10 PM CDT URI, acute from Last 3 Months Results * XR ANKLE 3 OR MORE VIEWS RIGHT (06/24/2025 2:02 PM CDT) Anatomical Region Laterality Modality LOWER EXTREMITY, ankle Right Digital R adiography 06/24/2025 2:02 PM CDT Impressions 06/24/2025 2:12 PM CDT IMPRESSION: No acute osseous findings. Tibiotalar joint effusion and lateral malleolus soft tissue edema. Narrative 06/24/2025 2:12 PM CDT DICTATING PHYSICIAN: Jb Lima M.D., [facility] EXAM: XR ANKLE 3 OR MORE VIEWS RIGHT 06/24/2025 2:02 PM Patient : 2000 Age: 24 years Gender: Male Number of images: 3 INDICATION: Right ankle pain after twisting injury COMPARISON: None FINDINGS: The bones appear to be in anatomic alignment. No fracture is identified. Moderate soft tissue edema overlying the lateral malleolus. Small tibiotalar joint effusion. Dorsal calcaneal bone spur. Procedure Note Jb Vera MD - 06/24/2025 DICTATING PHYSICIAN: Jb Lima M.D., [facility] EXAM: XR ANKLE 3 OR MORE VIEWS RIGHT 06/24/2025 2:02 PM Patient : 2000 Age: 24 years Gender: Male Number of images: 3 INDICATION: Right ankle pain after twisting injury COMPARISON: None FINDINGS: The bones appear to be in anatomic alignment. No fracture is identified. Moderate soft tissue edema overlying the lateral malleolus. Smalltibiotalar joint effusion. Dorsal calcaneal bone spur. IMPRESSION: No acute osseous findings. Tibiotalar joint effusion and lateralmalleolus soft tissue edema. us Morales James MD IMG DIAGNOSTIC ORDERABLES Final Result * POC SARS-COV-2 BY MOLECULAR (05/20/2025 4:11 PM CDT) SARSCOV2 Negative Negative, INVALID PROCEDURE CONTROL Valid 05/20/2025 4:11 PM CDT us Morales James MD POINT OF CARE TESTING ([facility]) Final Result * (ABNORMAL) POC GROUP A STREP BY MOLECULAR (05/20/2025 4:10 PM CDT) STREP A DNA Positive(A ) Negative, Invalid PROCEDURE CONTROL Valid 05/20/2025 4:10 PM CDT us Morales James MD POINT OF CARE TESTING ([facility]) Final Result from Last 3 Months Insurance [facility] Care Teams Solar Development Engineer Relationship Specialty Start Date End Date Hilario Ta, PAC [address] [place] [phone] PCP - General Physician Smoke Tester 03/15/25
--- OUTSIDE RECORDS SUMMARY | 2025-08-16 12:21 | XMS_ITS | Encounter Summary ---
Author Organization [facility] Address [address] [place] [address] Phone Care Team Providers Care Ese Teacher Name Role Phone Keyon Hilario B PAC Primary Care Provider [phone] Encounter Details Date Type Department Care Team (Late st Contact Info) Description 06/24/2025 Results Follow-Up [facility] - Primary Care - [place] [address] [place] [address] Morales James MD [address] [place] [address] XR ANKLE 3 OR MORE VIEWS RIGHT Social History Tobacco Use Types Packs/Day Years Used Date Smoking Tobacco: Never Passive Smoke Exposure: Never Smokeless Tobacco: Never Alcohol Use Standard Drinks/Week Comments Yes 0 [...] declined 03/15/2025 How often do you attend congregational or samaritan serv ices? Patient declined 03/15/2025 Do you belong to any clubs o r organizations such as congregational groups, unions, fraternal or athletic groups, or [...] medical care, and heating? Patient declined 03/15/2025 [facility] - Occupational Stress [...] any time in the past [address] [facility], were you homeless or living in a residential (including now)? No 06/28/2025 [facility] Utilities Answer Date Recorded In the [...] file Not on file Not on file documented as of this encounter Functional Status * BP Answer Date of Assessment Author 116/78 06/24/2025 1:40 PM CDT Topete, De bra J, RMA * Temp Answer Date of Assessment Author 97.2 06/24/2025 1:40 PM CDT Topete De bra J, RMA * Pulse Answer Date of Assessment Author 114 06/24/2025 1:40 PM CDT Topete, De bra J, RMA * Resp Answer Date of Assessment Author 20 06/24/2025 1:40 PM CDT Topete, De bra J, RMA * SpO2 Answer Date of Assessment Author 98 06/24/2025 1:40 PM CDT Topete De bra J, RMA documented as of this encounter Mental Status * BP Answer Entry Date Author 116/78 06/24/2025 1:40 PM CDT Topete De bra J, RMA * Temp Answer Entry Date Author 97.2 06/24/2025 1:40 PM CDT Topete, De bra J, RMA * Pulse Answer Entry Date Author 114 06/24/2025 1:40 PM CDT Topete, De bra J, RMA * SpO2 Answer Entry Date Author 98 06/24/2025 1:40 PM CDT Topete De bra J, RMA documented in this encounter Miscellaneous Notes * Telephone Encounter - Morales James MD - 06/24/2025 4:07 PM CDT He will need to provide us with a return to work date, as we cannot leave the off work note open-ended. * Telephone Encounter - Morales James MD - 06/24/2025 4:07 PM CDT ----- Message from Erin Arellano RN sent at 06/24/2025 4:03 PM CDT ----- ----- Message ----- From: Morales James MD Sent: 06/24/2025 2:44 PM CDT To: [facility] Nurse Care Team 1 Pool Patient's ankle x-ray shows no evidence of a fracture. He is to take the meloxicam as prescribed and use the ankle Montez wrap as recommended. ----- Message ----- From: Milton Sent: 06/24/2025 2:18 PM CDT To: Morales James MD documented in this encounter Plan of Treatment Upcoming Encounters Date Type Department Care Team (Late st Contact Info) Description 03/16/2026 9:30 AM CDT Office Visit [facility] - Primary Care - [place] [address] [place] [phone] Hilario Ta PAC [address] [place] [phone] documented as of this encounter Visit Diagnoses Not on filedocumented in this encounter Additional Health Concerns Assessment Noted Time PHQ-9 Depression Total Score: 0 03/15/20 4:55 PM CDT documented as of this encounter Care Teams Ese Teacher Relationship Specialty Start Date End Date Hilario Ta PAC [address] [place] [phone] PCP - General Physician Drive Away Driver 03/15/25 documented as of this encounter
--- OUTSIDE RECORDS SUMMARY | 2025-08-16 12:21 | XMS_ITS | Clinical Summary ---
Author Organization [facility] Address [address] [place] [address] Care Team Providers Care Power Plant Electrician Name Role Phone Unavailable Primary Care Provider Unavailabl e Source Comments [facility],non-owned Affiliates and Associated Physician Practices is amultiple site organization consisting of ambulatory clinics and hospital sitesin [place], [place], [place] and [place]. This disclosure is being madepursuant to the Care Everywhere program and may not contain all information available regarding this patient. 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
== END 2025-08-16 11:36 | disposition home or self-care (01) ==
PROVIDERS: Emergency Provider Registered Nurse; PCP Physician Assistant
DX: J02.9 Acute pharyngitis, unspecified (principal); F17.290 Nicotine dependence, other tobacco product, uncomplicated
CPT/HCPCS: 87081; 87880; 99213; G0463

== ENCOUNTER 2025-09-06 09:57 | Emergency (ER) | payer BC, SELFPAY ==
[2025-09-06 10:02] VITALS: BP 127/74; PULSE 85; RESP 20; TEMP 36.6; O2SAT 100
--- NOTE | 2025-09-06 10:06 | ED_ITS ---
HPI - Nausea/Vomiting/Diarrhea General Chief complaint: Nausea/Vomiting/Diarrhea Stated complaint: Vomiting Time Seen by Provider: 09/06/25 10:05 Source: patient Mode of arrival: ambulatory Limitations: no limitations History of Present Illness HPI Narrative: Chepe is a 25-year-old male patient presenting to the clinic today with complaints of nausea, vomiting, nasal congestion, fatigue, feeling feverish, and sore throat. He reports his symptoms started just last night. His has been sick at home as well as his child with similar symptoms. Denies any chest pain or shortness of breath. Has not taken any medications for his symptoms. States he has vomited twice this morning and had to leave/call into work. Related Data Home Medications ?Medication ?Instructions ?Recorded ?Confirmed ?Last Taken ?Type naproxen 09/06/25 Unknown History Allergies Allergy/AdvReac Type Severity Reaction Status Date / Time No Known Allergies Allergy Verified 09/06/25 10:05 Review of Systems Review of Systems: Pertinent positives per HPI. Patient denies any rash, headache, visual changes, dizziness, cough, shortness of breath, chest pain, palpitations, diarrhea, constipation, abdominal pain, or any urinary issues. [facility] Past Medical History Medical History Anxiety and depression Bronchitis Healthy adult male Surgical History Surgical History History of orthopedic surgery Right ankle Family History Family History Other Unknown family medical history Social History Social History Smoking status: Current every day smoker Tobacco type: e-cigarettes/vaping Alcohol intake: never Substance use type: does not use Lack of Transportation: No Lack of Food: Never True Current Housing: I Have Housing Concerned About Future Housing: No Difficulty Paying Gas/Electric Bills: No Difficulty Paying for Meds: No Currently Unemployed: YES Education: High School Diploma/GED Difficulty w/ Childcare or Family Care: No Comments At the time of my signature, I reviewed and agree with the nursing past medical, surgical, social, and family history. There is no relevant family history pertinent to the patient complaint. Exam Narrative: General: Well-developed, obese, in no apparent distress Head: Normocephalic, atraumatic Eyes: Pupils equally round and reactive to light bilaterally, EOM intact, sclera and conjunctive clear, no discharge, lids normal Ears: TMs intact and clear, ear canals clear, no drainage, grossly hearing normal. Nose: Nares patent, clear nasal discharge, mild inflammation, no sinus tenderness. Mouth: Oral pharynx red without lesions or masses, good dentition, MMM. Neck: Supple, trachea midline, no enlargement of anterior or posterior cervical nodes, no thyroid masses or goiter palpable. Cardio: Regular rate and rhythm, s1 and s2 normal, no murmur appreciated. Resp: Clear to auscultation bilaterally, no rhonchi, rales, wheezing or rubs Course Course Level of Care: Express Care Visit Vital Signs Vital signs: Vital Signs Temperature 36.6 C 09/06/25 10:02 Pulse Rate 85 09/06/25 10:02 Respiratory Rate 20 09/06/25 10:02 Blood Pressure 127/74 09/06/25 10:02 Pulse Oximetry 100 09/06/25 10:02 Oxygen Delivery Room Air 09/06/25 10:02 Temperature 36.6 C 09/06/25 10:02 Pulse Rate 85 09/06/25 10:02 Respiratory Rate 20 09/06/25 10:02 Blood Pressure 127/74 09/06/25 10:02 Pulse Oximetry 100 09/06/25 10:02 Oxygen Delivery Room Air 09/06/25 10:02 [facility] Narrative Medical decision making narrative: At the time of visit patient is resting comfortably on the exam table. Patient appears to be nontoxic. complaints of nausea, vomiting, nasal congestion, fatigue, feeling feverish, and sore throat. He reports his symptoms started just last night. His has been sick at home as well as his child with similar symptoms. Denies any chest pain or shortness of breath. Has not taken any medications for his symptoms. States he has vomited twice this morning and had to leave/call into work. On exam patient has bilateral TMs intact and clear, clear nasal drainage, mild anterior turbinate inflammation, mild oral pharynx redness, no cervical lymphadenopathy, heart rates regular rate and rhythm, lung sounds are clear. COVID, flu, and strep test were ordered. Vital signs are stable. Labs: COVID, flu, and strep test were all negative in the clinic today. We will send strep for culture. Plan: I suspect patient has URI/pharyngitis/viral syndrome. Will send in a prescription for nausea-ondansetron. Work note was given. Supportive measures were discussed with the patient and they voiced understanding discharge instructions and agrees to treatment plan. Return precautions reviewed Differential Diagnosis Differential Diagnosis: Differential diagnostic considerations for upper respiratory infection include upper respiratory infection, croup, otitis media, sinusitis, viral infection, bronchitis, influenza, pharyngitis, strep, uvulitis. Lab Data Labs: Lab Results 09/06/25 Range/Units 10:04 POC Influenza A Ag Negative (Negative) POC Influenza B Ag Negative (Negative) POC SARS CoV-2 Ag Negative (Negative) POC Grp A Strep Screen Negative (Negative) Discharge Plan Discharge Clinical Impression: Viral infection Pharyngitis Qualifiers: Pharyngitis/tonsillitis etiology: unspecified etiology Qualified Code(s): J02.9 - Acute pharyngitis, unspecified Upper respiratory infection Qualifiers: URI type: unspecified URI Qualified Code(s): J06.9 - Acute upper respiratory infection, unspecified Patient Disposition: Home Condition: Stable Instructions: Antibiotic Form, Pharyngitis (ED), Viral Syndrome (ED), Cold Symptoms (ED) Additional Instructions: Take prescription medications only as prescribed-ondansetron Increase fluids and stay well hydrated May take Tylenol or motrin as directed on bottle for pain/fever May use Flonase 1 spray in each nare daily May take OTC antihistamines such as Zyrtec or Claritin daily as directed on bottle May apply Vicks vapor rub to chest to open sinuses Sinus rinses for congestion Cepacol spray, cough drops, throat lozenges, warm tea with honey/lemon, gargle salt water to soothe throat BRAT diet for diarrhea Clear liquids x 24 hours then advance as tolerated for nausea/vomiting Go to the ED if you develop a worsening in your condition- high fever not controlled by Tylenol or Motrin, dehydration, weakness, lethargy, shortness of breath, or chest pain. Follow up with your PCP in 3-5 days if symptoms persist. Patient Language: Kyrgyz Prescriptions: New ondansetron 8 mg tablet,disintegrating 8 mg PO Q8H PRN (Reason: nausea and vomiting) 3 Days Qty: 10 0RF No Action naproxen Follow-up/Referrals: UNKNOWN,DOCTOR [Primary Care Provider] Stand Alone Forms: Work/School Release IP Time of Disposition: 10:41 Quality NIHSS Nursing Documentation ED NIHSS nursing documentation: reviewed/agree
[2025-09-06 10:24] LABS: EDCOVIDSCREEN Negative (Negative); EDINFLUASCREEN Negative (Negative); EDINFLUBSCREEN Negative (Negative)
[2025-09-06 10:42] LABS: EDSTREPNEGPOS1 Negative (Negative)
--- OUTSIDE RECORDS SUMMARY | 2025-09-06 11:15 | XMS_ITS | Clinical Summary ---
Author Organization [facility] Address [address] [place] [address] Phone Care Team Providers Care Fashion Consultant Selling Name Role Phone Hilario Ta Primary Care Provider Allergies Active Allergy Reactions Criticality Noted Date [...] Description 06/28/2025 2:15 PM CDT Office Visit [facility] - [place] [address] [place] [address] Hilario Ta PAC Sprain of anterior talofibular ligament of right ankle, subsequent encounter (Primary Dx) Discharge Disposition: Discharged to home or Selfcare 06/28/2025 Travel 06/24/2025 1:55 PM CDT Ancillary Procedure [facility] Diagnostic Radiology - [place] [address] [place] [address] Morales James MD Discharge Disposition: Discharged to home or Selfcare 06/24/2025 1:45 PM CDT Office Visit [facility] - [place] [address] [place] [address] Morales James MD Strain of right ankle, initial encounter (Primary Dx) Discharge Disposition: Discharged to home or Selfcare 06/24/2025 Results Follow-Up [facility] Primary Care - [place] [address] [place] [address] Morales James MD XR ANKLE 3 OR MORE VIEWS RIGHT 06/24/2025 Travel 06/24/2025 [facility] [address] [place] [address] Hilario Ta, PAC Advice Only; Ankle Injury 06/24/2025 Telephone [facility] - [place] [address] [place] [address] Hilario Ta, PAC from Last 3 Months Immunizations Immunization [...] declined 03/15/2025 How often do you attend pentecostalism or bahai serv ices? Patient declined 03/15/2025 Do you belong to any clubs o r organizations such as pentecostalism groups, unions, fraternal or athletic groups, or [...] medical care, and heating? Patient declined 03/15/2025 [facility] - [...] any time in the past 12 m [facility], were you homeless or living in a correction (including now)? No 06/28/2025 [facility] Utilities Answer Date Recorded In the past 12 months has th e [employer], gas, oil, or water [employer] threatened to shut off services in your [...] Medical Group - Primary Care - [place] [address] [place] [address] Hilario Ta PAC [address] [place] [address] Health Maintenance Due Date Last Done Comments Hepatitis C Virus (HCV) Screening 2001 DTaP/Tdap/Td Immunization (7 - Td or Tdap) 05/19/2023 05/19/2013, 04/04/2007, 06/17/2003, Additional history exists Influenza Immunization (#1) 05/17/202507/17, 07/14/2015, 07/19/2014 SARS-COV-2 Immunization ( - season) 2025 Respiratory Syncytial Virus (RSV) Immunization [...] CDT Strain of right ankle, initial encounter from Last 3 Months Results * XR ANKLE 3 OR MORE VIEWS RIGHT (06/24/2025 2:02 PM CDT) Anatomical Region Laterality Modality LOWER EXTREMITY, ankle Right Digital R adiography 06/24/2025 2:02 PM CDT Impressions 06/24/2025 2:12 PM CDT IMPRESSION: No acute osseous findings. Tibiotalar joint effusion and lateral malleolus soft tissue edema. Narrative 06/24/2025 2:12 PM CDT DICTATING PHYSICIAN: Jb Lima M.D., [facility] EXAM: XR ANKLE 3 OR [...] - 06/24/2025 DICTATING PHYSICIAN: Jb Lima M.D., [facility] EXAM: XR ANKLE 3 OR MORE [...] James MD IMG DIAGNOSTIC ORDERABLES Final Result from Last 3 Months Insurance [facility] Care Teams Fashion Consultant Selling Relationship Specialty Start Date End Date Hilario Ta, PAC [address] [place] [phone] PCP - General Physician Pediatric Psychiatrist 03/15/25
--- OUTSIDE RECORDS SUMMARY | 2025-09-06 11:15 | XMS_ITS | Clinical Summary ---
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 Gender Identity Not on file Sexual Orientation [...] Depression Screening 2001 Hepatitis C Screening 2001 Regular Well Visit/Exam 18-64 2019 DTaP/Tdap/Td Vaccine (7 - Td or Tdap) 05/19/2023 05/19/2013, 04/04/2007, 06/17/2003, Additional history exists Influenza Vaccine (#1) 2025 7, 07/14/2015, 07/19/2014 Hepatitis B Screening Completed 06/08/2002 , 2001, 2001 Pneumococcal vaccine <65 Completed 003, 03/09/2002, 01/06/2002, Additional history exists Varicella Vaccines Completed 04/04/2007, 09/14/2002 HPV Vaccines Completed 04/14/2015, 12/2013, 06/18/2014 Insurance Care Teams Stars Analytical Lead Relationship Specialty Start Date End Date No, Physician PCP - General 03/10/25
--- OUTSIDE RECORDS SUMMARY | 2025-09-06 11:15 | XMS_ITS | Clinical Summary ---
Author Organization [facility] Address [address] [place] [address] Care Team Providers Care Ships Or Barges Loader Name Role Phone Unavailable Primary Care Provider Unavailabl e Source Comments [facility],non-owned Affiliates and Associated Physician Practices is amultiple site organization consisting of ambulatory clinics and hospital sitesin [place], [place], [place] and [place]. This disclosure is being madepursuant to the Care Everywhere program and may not contain all information available regarding this patient. 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
== END 2025-09-06 10:52 | disposition home or self-care (01) ==
PROVIDERS: Emergency Provider Nurse Practitioner Family
DX: B34.9 Viral infection, unspecified (principal); J02.9 Acute pharyngitis, unspecified; J06.9 Acute upper respiratory infection, unspecified; Z20.822 Contact with and (suspected) exposure to COVID-19; F17.290 Nicotine dependence, other tobacco product, uncomplicated
CPT/HCPCS: 87081; 87426; 87804; 87880; 99213; G0463

== ENCOUNTER 2025-09-08 11:47 | Emergency (ER) | payer BC, SELFPAY ==
--- OUTSIDE RECORDS SUMMARY | 2025-09-08 11:49 | XMS_ITS | Clinical Summary ---
Author Organization [facility] Address [address] [place] [address] Care Team Providers Care Hydrate Control Tender Name Role Phone Unavailable Primary Care Provider Unavailabl e Source Comments [facility],non-owned Affiliates and Associated Physician Practices is amultiple site organization consisting of ambulatory clinics and hospital sitesin [place], [place], [place] and [place]. This disclosure is being madepursuant to the Care Everywhere program and may not contain all information available regarding this patient. 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
--- OUTSIDE RECORDS SUMMARY | 2025-09-08 11:49 | XMS_ITS | Clinical Summary ---
Author Organization [facility] Address [address] [place] [address] Phone Care Team Providers Care Sewer Maintenance Supervisor Name Role Phone Hilario Ta Primary Care [...] Description 06/28/2025 2:15 PM CDT Office Visit [facility] - [place] [address] [place] [address] Hilario Ta PAC Sprain of anterior talofibular ligament of right ankle, subsequent encounter (Primary Dx) Discharge Disposition: Discharged to home or Selfcare 06/28/2025 Travel 06/24/2025 1:55 PM CDT Ancillary Procedure [facility] Diagnostic Radiology - [place] [address] [place] [address] Morales James MD Discharge Disposition: Discharged to home or Selfcare 06/24/2025 1:45 PM CDT Office Visit [facility] - [place] [address] [place] [address] Morales James MD Strain of right ankle, initial encounter (Primary Dx) Discharge Disposition: Discharged to home or Selfcare 06/24/2025 Results Follow-Up [facility] - [place] [address] [place] [address] Morales James MD XR ANKLE 3 OR MORE VIEWS RIGHT 06/24/2025 Travel 06/24/2025 [facility] [address] [place] [address] Hilario Ta, PAC Advice Only; Ankle Injury 06/24/2025 Telephone [facility] - [address] [address] [place] [address] Hilario Ta, PAC from Last [...] declined 03/15/2025 How often do you attend oriental orthodox or pentecostalism serv ices? Patient declined 03/15/2025 Do you belong to any clubs o r organizations such as oriental orthodox groups, unions, fraternal or athletic groups, or [...] medical care, and heating? Patient declined 03/15/2025 [facility] - Occupational [...] any time in the past 12 m [facility], were you homeless or living in a usp (including now)? No 06/28/2025 [facility] Utilities Answer Date Recorded In the past 12 months has th e [employer], gas, oil, or water [employer] threatened to shut off services in your [...] Medical Group - Primary Care - [place] [address] [place] [address] Hilario Ta PAC [address] [place] [address] Health Maintenance Due Date Last Done [...] PM CDT DICTATING PHYSICIAN: Jb Lima M.D., [facility] EXAM: XR ANKLE 3 [...] - 06/24/2025 DICTATING PHYSICIAN: Jb Lima M.D., [facility] EXAM: XR ANKLE 3 OR [...] Final Result from Last 3 Months Insurance [facility] Care Teams Sewer Maintenance Supervisor Relationship Specialty Start Date End Date Hilario Ta, PAC [address] [place] [phone] PCP - General Physician Personnel Psychologist 03/15/25
--- OUTSIDE RECORDS SUMMARY | 2025-09-08 11:49 | XMS_ITS | Clinical Summary ---
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
[2025-09-08 12:14] VITALS: BP 104/56; PULSE 97; RESP 20; TEMP 36.8; O2SAT 100
--- NOTE | 2025-09-08 13:37 | ED_ITS ---
HPI - URI/Sore Throat General Chief Complaint: Upper Respiratory Infection Stated Complaint: strep test Time Seen by Provider: 09/08/25 13:20 Source: patient, RN notes reviewed and old records reviewed Mode of arrival: ambulatory Limitations: no limitations History of Present Illness HPI Narrative: 25-year-old male with complaints of sore throat since Saturday with reported chills and sweats and has felt feverish. Patient reports no sinus congestion or drainage or sinus pain denies any ear pain pr acute cough. Patient reports that his significant other recently diagnosed with strep throat. Patient reports no headache or any nausea or vomiting or diarrhea.. patient reports that he has taken some Tylenol for his symptoms. MD elicited complaint: sore throat Pertinent past history: other (sinus problems and bronchitis) Onset (ago): day(s) (day 3) Consistency: constant Pain scale (0-10): 4 Able to tolerate fluids by mouth: Yes Treatments prior to arrival: acetaminophen Related Data Allergies Allergy/AdvReac Type Severity Reaction Status Date / Time No Known Allergies Allergy Verified 09/08/25 12:14 Review of Systems Review of Systems: CONSTITUTIONAL: Reports malaise, no chills, sweats, no known fever. reports he has felt feverish EYES: Denies visual changes, redness, or discharge. ENT: Reports no acute rhinorrhea, congestion, or sinus pain, no otalgia and +sore throat. CARDIOVASCULAR: Denies chest pain, palpitations, or edema. RESPIRATORY: Reports no cough.? Denies dyspnea. GASTROINTESTINAL: Denies abdominal pain, nausea, vomiting, diarrhea SKIN: Denies rash or itching. MUSCULOSKELETAL: Denies myalgia. NEUROLOGIC: Denies headache. All systems reviewed & are unremarkable except as noted in HPI and below PMFSH Past Medical History Medical History Hx of migraines Anxiety and depression Bronchitis Healthy adult male Surgical History Surgical History History of orthopedic surgery Right ankle Family History Family History Other Unknown family medical history Social History Social History Smoking status: Current every day smoker Tobacco type: e-cigarettes/vaping Alcohol intake: never Substance use type: does not use Lack of Transportation: No Lack of Food: Never True Current Housing: I Have Housing Concerned About Future Housing: No Difficulty Paying Gas/Electric Bills: No Difficulty Paying for Meds: No Currently Unemployed: YES Education: High School Diploma/GED Difficulty w/ Childcare or Family Care: No Comments At time of signature, agree with nursing past medical, surgical, social and family history. There is no relevant family history pertinent to the presenting complaint Exam Narrative: GENERAL: Well-appearing, well-nourished, and in no acute distress. HEAD: Normocephalic EYES: PERRLA, conjunctivae clear ENT: Nares clear, turbinates edematous and erythematous, clear discharge. Mucous membranes moist. TM pearly carvajal with dull light reflex bilaterally; no tragal tenderness. Oropharynx erythematous without lesions. Tonsils red enlarged and with white exudate, no drooling, no hoarseness, no trismus, uvula midline.scant post nasal drainage noted NECK: Supple. No lymphadenopathy CHEST: Clear to auscultation, breath sounds equal. No wheezing, rhonchi, rales, or stridor. No respiratory distress, speaks in full sentences.SAO2 100% on room air HEART: Regular rate and rhythm. No murmur heard. SKIN: Warm, dry, no rash. NEURO: Alert and oriented x3. PSYCH: Normal mood and affect Course Course Level of Care: Express Care Visit Vital Signs Vital signs: Vital Signs Temperature 36.8 C 09/08/25 12:14 Pulse Rate 97 09/08/25 12:14 Respiratory Rate 20 09/08/25 12:14 Blood Pressure 104/56 L 09/08/25 12:14 Pulse Oximetry 100 09/08/25 12:14 Oxygen Delivery Room Air 09/08/25 12:14 Temperature 36.8 C 09/08/25 12:14 Pulse Rate 97 09/08/25 12:14 Respiratory Rate 20 09/08/25 12:14 Blood Pressure 104/56 L 09/08/25 12:14 Pulse Oximetry 100 09/08/25 12:14 Oxygen Delivery Room Air 09/08/25 12:14 reviewed MDM MDM Narrative Medical decision making narrative: 25 year old male with complaints of sore throat with tonsil enlargement and exudate noted also positive exposure reported, strep screen negative , culture sent. Will treat with Amoxicillin RX,Advised supportive measures and signs/symptoms to go to the ER. Pt is appropriate for outpt treatment and f/u. Differential Diagnosis Differential Diagnosis: Differential diagnostic considerations for upper respiratory infection include upper respiratory infection, croup, otitis media, sinusitis, viral infection, bronchitis, influenza, pharyngitis, strep, uvulitis.? Lab Data MDM Lab Attestation statement: I personally reviewed the patient's lab results. Lab results narrative: strep screen negative with culture sent Labs: Lab Results 09/08/25 Range/Units 13:49 POC Grp A Strep Screen Negative (Negative) reviewed Critical Care Time Critical Care Time Critical Care Time: No Discharge Plan Discharge Clinical Impression: Acute tonsillitis Qualifiers: Pharyngitis/tonsillitis etiology: unspecified etiology Qualified Code(s): J03.90 - Acute tonsillitis, unspecified Patient Disposition: Home Condition: Stable Instructions: Antibiotic Form, Tonsillitis (ED) Additional Instructions: Increase fluids especially juices and water [id number] cough and cold medicine of your choice for your symptoms Tylenol or ibuprofen for any fever pain Zyrtec Claritin or Ofelia daily if any sinus congestion and drainage and include plain Sudafed heat to the face 20-30 minutes 4-6 times a day for pain Salt water gargles, throat lozenges or throat sprays as desired Antibiotic as directed--finished the medication If your symptoms persist, change or worsen significantly before you can contact your personal physician then please, without delay, go to the emergency department for further evaluation. Follow-up with PCP in 7-10 days or sooner if needed strep culture sent Patient Language: [place] Prescriptions: New amoxicillin 500 mg tablet 500 mg PO Q8H Qty: 21 0RF Rx Instructions: take all doses of oral antibiotic Follow-up/Referrals: PHYSICIAN NOT ON STAFF,NONSTAFF [Primary Care Provider] Stand Alone Forms: Work/School Release IP Time of Disposition: 13:45 Quality [place] Coma Scale Eyes: Open Verbal: Oriented and Alert Motor: Follows Commands [place] Coma Total Score: 15
[2025-09-08 13:51] LABS: EDSTREPNEGPOS1 Negative (Negative)
== END 2025-09-08 13:50 | disposition home or self-care (01) ==
PROVIDERS: Emergency Provider Registered Nurse
DX: J03.90 Acute tonsillitis, unspecified (principal); F17.290 Nicotine dependence, other tobacco product, uncomplicated
CPT/HCPCS: 87081; 87880; 99213; G0463